=== PATIENT | male | born 1955 | race Caucasian/White ===

== ENCOUNTER 2017-07-13 22:45 | Inpatient (IN) | payer OTHER ==
[~2017-07-13] VITALS: Ht 180.3 cm; Wt 115.0 kg
[2017-07-13 22:48] VITALS: BP 161/107; PULSE 105; RESP 16; TEMP 98.7; O2SAT 94
[2017-07-13] MEDS ORDERED: SODIUM CHLORIDE 0.9% FLUSH 10 ML FLUSH IV FLUSH PRN (23:45)
[2017-07-13] MEDS ORDERED: ONDANSETRON HCL 4 MG/2 ML VIAL IVP ONE (23:45)
[2017-07-13] MEDS ORDERED: MORPHINE SULFATE 4 MG/ML INJ IV PUSH ONE (23:45)
--- NOTE | 2017-07-13 23:49 | PD ---
HPI Chief Complaint: Abdominal Pain Time Seen by Provider: 23:38 Travel History International Travel<30 days: No Contact w/Intl Traveler<30days: No Traveled to known affect area: No History of Present Illness HPI SINCE WEDNESDAY INTERMITTENT ABD PAIN, ON LOWER ABDOMEN, 04/15, NONRAD, DENIES NV/ D/FEVER/CP AT THIS TIME. PATIENT STATES NO AGGRAVATING FACTORS BUT PAIN SEEMED TO IMPROVE WITH VOMITING. PCP: VISITING FROM [place] PMHS: HTN, HYPERCHOL PSHX DENIES PFSH Past Medical History High Cholesterol: Yes Diminished Hearing: No Hypertension: Yes Tetanus Vaccination: < 5 Years Influenza Vaccination: Yes Past Surgical History Surgical History: No Previous Surgery Social History Alcohol Use: Yes (SOCIALLY) Tobacco Use: No Substance Use: No Allergies-Medications (Allergen,Severity, Reaction): Coded Allergies: No Known Allergies (Unverified , 07/13/17) Reported Meds & Prescriptions Reported Meds & Active Scripts Active Reported Simvastatin 20 Mg Tab 20 Mg PO HS Lisinopril 20 Mg Tab 20 Mg PO HS Fish Oil + D3 (Fish Oil-Cholecalciferol) 1,200-1,000 Mg-Unit Cap 1 Cap PO BID Fexofenadine (Fexofenadine HCl) 180 Mg Tab 180 Mg PO BID Escitalopram (Escitalopram Oxalate) 10 Mg Tab 20 Mg PO DAILY Complete Multi 50+ Tablet (Multivit-Min/FA/Lycopen/Lutein) 500 Mcg-300 Mcg-250 Mcg Tablet 1 Tab PO DAILY Aspirin 81 Mg Chew 81 Mg CHEW HS Amlodipine (Amlodipine Besylate) 5 Mg Tab 5 Mg PO DAILY Review of Systems General / Constitutional: No: Fever Eyes: No: Visual changes HENT: No: Headaches Cardiovascular: No: Chest Pain or Discomfort Respiratory: No: Shortness of Breath Gastrointestinal: Positive: Vomiting, Abdominal Pain Genitourinary: No: Dysuria Musculoskeletal: No: Pain Skin: No Rash Neurologic: No: Weakness Psychiatric: No: Depression Endocrine: No: Polydipsia Hematologic/Lymphatic: No: Easy Bruising Physical Exam Narrative GENERAL: SKIN: Warm and dry. HEAD: Atraumatic. Normocephalic. EYES: Pupils equal and round. No scleral icterus. No injection or drainage. ENT: No nasal bleeding or discharge. Mucous membranes pink and moist. NECK: Trachea midline. No JVD. CARDIOVASCULAR: Regular rate and rhythm. RESPIRATORY: No accessory muscle use. Clear to auscultation. Breath sounds equal bilaterally. GASTROINTESTINAL: Abdomen soft, MILD SUPRAPUBIC TTPERCUSSION , nondistended. DECREASED BOWEL SOUNDS MUSCULOSKELETAL: Extremities without clubbing, cyanosis, or edema. No obvious deformities. NEUROLOGICAL: Awake and alert. No obvious cranial nerve deficits. Motor grossly within normal limits. Five out of 5 muscle strength in the arms and legs. Normal speech. PSYCHIATRIC: Appropriate mood and affect; insight and judgment normal. Data Data Last Documented VS Orders Orders Complete Blood Count With Diff (07/13/17 23:44) Comprehensive Metabolic Panel (07/13/17 23:44) Lipase (07/13/17 23:44) Urinalysis - C+S If Indicated (07/13/17 23:44) Ct Abd/Pel W/O Iv Contrast (07/13/17 23:44) Iv Access Insert/Monitor (07/13/17 23:44) Ecg Monitoring (07/13/17 23:44) Oximetry (07/13/17 23:44) Morphine Inj (Morphine Inj) (07/13/17 23:45) Ondansetron Inj (Zofran Inj) (07/13/17 23:45) Electrocardiogram (07/13/17 23:44) Admit To Inpatient (07/14/17 ) Vital Signs (Adult) Q4H (07/14/17 02:18) Activity Oob With Assistance (07/14/17 02:18) Stippler / Telemetry .CONTINUOUS (07/14/17 02:18) Diet Npo (07/14/17 Breakfast) Sodium Chlor 0.9% 1000 Ml Inj (Ns 1000 M (07/14/17 02:18) Sodium Chloride 0.9% Flush (Ns Flush) (07/14/17 02:30) Sodium Chloride 0.9% Flush (Ns Flush) (07/14/17 09:00) Ondansetron Inj (Zofran Inj) (07/14/17 02:30) Complete Blood Count With Diff (07/15/17 06:00) Naloxone Inj (Narcan Inj) (07/14/17 02:30) Inpatient Certification (07/14/17 ) Consult General Surgery (07/14/17 ) Labs Laboratory Tests Test 07/13/17 23:55 07/14/17 00:30 White Blood Count 5.3 TH/MM3 Red Blood Count 4.62 MIL/MM3 Hemoglobin 14.7 GM/DL Hematocrit 43.4 % Mean Corpuscular Volume 93.9 FL Mean Corpuscular Hemoglobin 31.8 PG Mean Corpuscular Hemoglobin Concent 33.9 % Red Cell Distribution Width 13.1 % Platelet Count 288 TH/MM3 Mean Platelet Volume 7.3 FL Neutrophils (%) (Auto) 66.8 % Lymphocytes (%) (Auto) 15.5 % Monocytes (%) (Auto) 15.9 % Eosinophils (%) (Auto) 1.5 % Basophils (%) (Auto) 0.3 % Neutrophils # (Auto) 3.5 TH/MM3 Lymphocytes # (Auto) 0.8 TH/MM3 Monocytes # (Auto) 0.8 TH/MM3 Eosinophils # (Auto) 0.1 TH/MM3 Basophils # (Auto) 0.0 TH/MM3 CBC Comment AUTO DIFF Differential Total Cells Counted 100 Neutrophils % (Manual) 28 % Band Neutrophils % 37 % Lymphocytes % 18 % Monocytes % 13 % Neutrophils # (Manual) 3.7 TH/MM3 Metamyelocytes 4 % Differential Comment FINAL DIFF MANUAL Atypical Lymphocytes % Toxic Vacuolation PRESENT Dohle Bodies PRESENT Platelet Estimate NORMAL Platelet Morphology Comment NORMAL Red Cell Morphology Comment NORMAL Blood Urea Nitrogen 38 MG/DL Creatinine 1.34 MG/DL Random Glucose 125 MG/DL Total Protein 7.9 GM/DL Albumin 3.5 GM/DL Calcium Level 8.8 MG/DL Alkaline Phosphatase 69 U/L Aspartate Amino Transf (AST/SGOT) 26 U/L Alanine Aminotransferase (ALT/SGPT) 34 U/L Total Bilirubin 0.5 MG/DL Sodium Level 138 MEQ/L Potassium Level 3.3 MEQ/L Chloride Level 99 MEQ/L Carbon Dioxide Level 29.2 MEQ/L Anion Gap 10 MEQ/L Estimat Glomerular Filtration Rate 54 ML/MIN Lipase 91 U/L Urine Color YELLOW Urine Turbidity CLEAR Urine pH 6.0 Urine Specific [place] 1.032 Urine Protein 100 mg/dL Urine Glucose (UA) NEG mg/dL Urine Ketones TRACE mg/dL Urine Occult Blood NEG Urine Nitrite NEG Urine Bilirubin NEG Urine Urobilinogen 2.0 MG/DL Urine Leukocyte Esterase NEG Urine RBC 1 /hpf Urine WBC LESS THAN 1 /hpf Urine Renal Epithelial Cells <1 /hpf Urine Mucus FEW /lpf Microscopic Urinalysis Comment CULT NOT INDICATED MDM Medical Decision Making Medical Screen Exam Complete: Yes Emergency Medical Condition: Yes Medical Record Reviewed: Yes Differential Diagnosis PANCREATITIS V APPY V GB V BILIARY COLIC V STEMI Narrative Course no e/o stemi, on ct no e/o appy/biliary colic however sbo noted...pt will be admitted for observation Diagnosis Primary Impression: SBO Admitting Information Admitting Physician Requests: Observation Dharmesh Chandler MD Jul 13, 2017 23:49
[2017-07-13 23:55] VITALS: PULSE 94; RESP 16; O2SAT 96
[2017-07-14] VITALS (8 sets, daily range): BP systolic 141–163; BP diastolic 79–99; PULSE 64–94; RESP 16–22; TEMP 96–98.8; O2SAT 94–96
[2017-07-14 00:23] LABS: AUTOMATED NEUTROPHIL # 3.5 TH/MM3 (1.8-7.7); BASOPHIL % 0.3 % (0.0-2.0); EOSINOPHIL # 0.1 TH/MM3 (0-0.4); EOSINOPHIL % 1.5 % (0.0-4.0); HEMATOCRIT 43.4 % (39.0-51.0); LYMPH % 15.5 % (9.0-44.0); LYMPHOCYTE # 0.8 TH/MM3 (1.0-4.8); MEAN CELL VOLUME 93.9 FL (80.0-100.0); MEAN CORPUSCULAR HEMOGLOBIN 31.8 PG (27.0-34.0); MEAN CORPUSCULAR HGB CONC 33.9 % (32.0-36.0); MONO % 15.9 % (0.0-8.0); NEUT % 66.8 % (16.0-70.0); PLATELET COUNT 288 TH/MM3 (150-450); RED BLOOD COUNT 4.62 MIL/MM3 (4.50-5.90); RED CELL DISTRIBUTION WIDTH 13.1 % (11.6-17.2); WHITE BLOOD COUNT 5.3 TH/MM3 (4.0-11.0)
[2017-07-14 00:24] LABS: HEMO FLAGS AUTO DIFF
[2017-07-14 00:46] LABS: BLOOD, URINE NEG (NEG); GLUCOSE,URINE NEG (NEG); KETONE, URINE TRACE mg/dL (NEG); MUCUS URINE FEW /lpf (OCC); NITRITE,URINE NEG (NEG); RENAL EPITHELIAL CELLS <1 /hpf; URINE COLOR YELLOW (YELLW/STRAW)
[2017-07-14 00:47] LABS: COMMENT (UR) CULT NOT INDICATED; CULTURE IF INDICATED CULT NOT INDICATED
[2017-07-14 00:48] LABS: ALT (GPT) 34 U/L (12-78); ANION GAP 10 MEQ/L (5-15); AST (GOT) 26 U/L (15-37); BICARBONATE 29.2 MEQ/L (21.0-32.0); BLOOD UREA NITROGEN 38 MG/DL (7-18); CHLORIDE 99 MEQ/L (98-107); GLOMERULAR FILTRATION RATE 54 ML/MIN (>89); POTASSIUM 3.3 MEQ/L (3.5-5.1); SODIUM (NA) 138 MEQ/L (136-145)
[2017-07-14 00:51] LABS: ALKALINE PHOSPHATASE 69 U/L (45-117); TOTAL BILIRUBIN ADULT 0.5 MG/DL (0.2-1.0)
[2017-07-14 00:59] LABS: BANDS 37 % (0-6); METAMYELOCYTES 4 % (0-1); NEUTROPHIL # MANUAL DIFF 3.7 TH/MM3 (1.8-7.7); POLYS (SEG NEUTROPHILS) 28 % (16-70); WBC DIFF SAMPLE 100
[2017-07-14 01:00] LABS: DOHLE BODIES PRESENT (NONE SEEN); PLATELET ESTIMATE SMEAR NORMAL (NORMAL); PLATELET MORPHOLOGY NORMAL (NORMAL); SCAN/DIFF FINAL DIFF MANUAL
[2017-07-14 01:02] LABS: TOXIC VACUOLATION PRESENT (NONE SEEN)
--- NOTE | 2017-07-14 01:12 | RADRPT ---
EXAM DATE/TIME: 07/14/2017 00:30 [facility] COMPARISON: No previous studies available for comparison. INDICATIONS : Mid-abdominal pain with vomiting. Evaluate for calculi. ORAL CONTRAST: No oral contrast ingested. RADIATION DOSE: 28.42 CTDIvol (mGy) MEDICAL HISTORY : Hypertension. SURGICAL HISTORY : None. ENCOUNTER: Initial ACUITY: 1 day PAIN SCALE: 7/10 LOCATION: Abdomen. TECHNIQUE: Volumetric scanning of the abdomen and pelvis was performed. Using automated exposure control and ad justment of the mA and/or kV according to patient size, radiation dose was kept as low as reasonably achievable to obtain optimal diagnostic quality images. DICOM format image data is available electro nically for review and comparison. FINDINGS: Examination of the lung bases demonstrates no abnormality. No pleural fluid is identified. No pulmona ry nodules are present. The liver and spleen are normal in size and no focal defects are identified. The gallbladder and pancreas are unremarkable. No intrahepatic or extrahepatic ductal dilatation is s een. The adrenal glands are unremarkable. The right kidney is unremarkable. There is a 5 mm hyperdens ity in the left kidney likely reflecting a hyperdense cyst. No abnormally enlarged lymph nodes are id entified. There is a 2 cm ossific density involving the distal ileum at the site of a transition zone characteristic of mechanical obstruction. No free air is identified. Examination of the pelvis demonstrates no evidence of free fluid or pelvic mass. No abnormally enlarg ed inguinal or retroperitoneal lymph nodes are present. The bladder is unremarkable. There is diverti culosis without evidence of diverticulitis. 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 Titi Blunt MD on July 14, 2017 at 1: 00 Board Certified Radiologist. This report was verified electronically.
[2017-07-14] MEDS ORDERED: ONDANSETRON HCL 4 MG/2 ML VIAL IVP PRN (02:30)
[2017-07-14] MEDS ORDERED: NALOXONE HCL 0.4 MG/ML AMP IV PUSH PRN ×2 (02:30→08:30)
[2017-07-14] MEDS ORDERED: SODIUM CHLORIDE 0.9% FLUSH 10 ML FLUSH IV FLUSH PRN ×2 (02:30→08:30)
[2017-07-14] MEDS: SODIUM CHLOR 0.9% 1000 ML INJ 1,000 ML IV SCH ×3 (03:01→10:17)
[2017-07-14] MEDS: POTASSIUM CHLOR 20 MEQ PREMIX 100 ML IV SCH ×2 (03:02→05:17)
[2017-07-14] MEDS ORDERED: ASPI-516 CHEW (07:24)
[2017-07-14] MEDS ORDERED: TH CTAB3 PO (07:24)
[2017-07-14] MEDS ORDERED: FEXO180T PO (07:24)
[2017-07-14] MEDS ORDERED: SIMV20TA PO (07:24)
[2017-07-14] MEDS ORDERED: FISHCAP4 PO (07:24)
[2017-07-14] MEDS ORDERED: LISI-515 PO (07:24)
[2017-07-14] MEDS ORDERED: AMLO5TAB2 PO (07:24)
[2017-07-14] MEDS ORDERED: ESCI10TA PO (07:24)
[2017-07-14] MEDS ORDERED: oxyCODONE/ACETAMINOPHEN 10 MG/325 MG TAB PO PRN (08:30)
[2017-07-14] MEDS ORDERED: LACTULOSE SYRUP 20 GM/30 ML CUP PO PRN (08:30)
[2017-07-14] MEDS ORDERED: MAGNESIUM HYDROXIDE SUSP 30 ML CUP PO PRN (08:30)
[2017-07-14] MEDS ORDERED: oxyCODONE/ACETAMINOPHEN 5 MG/325 MG TAB PO PRN (08:30)
[2017-07-14] MEDS ORDERED: MORPHINE SULFATE 4 MG/ML INJ IV PUSH PRN ×2 (08:30)
[2017-07-14] MEDS ORDERED: BISACODYL 10 MG SUPP RECTAL PRN (08:30)
[2017-07-14] MEDS ORDERED: ACETAMINOPHEN 325 MG TAB PO PRN ×2 (08:30)
[2017-07-14] MEDS ORDERED: SENNOSIDES 8.6 MG TAB PO PRN (08:30)
[2017-07-14] MEDS ORDERED: PROCHLORPERAZINE 25 MG SUPP RECTAL PRN (08:30)
--- NOTE | 2017-07-14 08:43 | RADRPT ---
EXAM DATE/TIME: 07/14/2017 08:16 [facility] COMPARISON: CT ABDOMEN & PELVIS W/O CONTRAST, July 14, 2017, 0:30. INDICATIONS : Abdominal pain & distention. MEDICAL HISTORY : Hypercholesterolemia. Hypertension SURGICAL HISTORY : None. ENCOUNTER: Subsequent ACUITY: 4 - 6 days PAIN SCORE: 6/10 LOCATION: lower/mid abdomen FINDINGS: Supine and upright views of the abdomen demonstrate abnormally dilated small bowel with air-fluid lev els. The small bowel measures up to 5 cm. Nasogastric tube is looped in the stomach. There is an ovoi d calcified structure in the right lower quadrant measuring 3.0 x 1.6 cm. There is no pneumobilia gautam reciated. Bones demonstrate mild degenerative change but no acute finding. Lung bases are clear. No f ree air is visualized. CONCLUSION: 1. Abnormally dilated small bowel with air-fluid levels characteristic of a small bowel obstruction. 2. The level of obstruction is in the right lower quadrant where there is a 3 cm calcified lesion wit hin the small bowel based on earlier CT. No pneumobilia is visualized to definitively diagnose gallst one ileus but that is a top consideration. Less likely a calcified small bowel mass or ingested forei gn body could be the cause for the calcified lesion in the distal ileum. Zachary Villalpando MD on July 14, 2017 at 8:39 Board Certified Radiologist. This report was verified electronically.
[2017-07-14] MEDS ORDERED: SODIUM CHLORIDE 0.9% FLUSH 10 ML FLUSH IV FLUSH SCH ×2 (09:00)
[2017-07-14] MEDS: DOCUSATE SODIUM 50 MG/SENNA 8.6 MG TAB PO SCH ×2 (09:00→20:27)
--- NOTE | 2017-07-14 09:37 | EKG ---
Date Performed: 07/14/2017 Time Performed: 00:09:54 PTAGE: 62 years EKG: Sinus rhythm NONSPECIFIC ST & T-WAVE ABNORMALITY BORDERLINE ECG NO PREVIOUS TRACING DOCTOR: Chato Whittington Interpretating Date/Time 07/14/2017 09:33:40
--- NOTE | 2017-07-14 11:10 | HHI.HP ---
[facility] Primary Care Physician No Primary Care Physician Admission Diagnosis SBO Diagnoses: (1) SBO (small bowel obstruction) Diagnosis: Principal (2) Abdominal pain Diagnosis: Principal (3) Hypertension (4) Hyperlipidemia Diagnosis: Secondary (5) Hypokalemia Diagnosis: Secondary Chief Complaint: ABDOMINAL PAIN Travel History International Travel<30 Days: No Contact w/Intl Traveler <30 Da: No Traveled to Known Affected Are: No History of Present Illness Patient is a 62-year-old male. He was having abdominal pain since Wednesday. The pain has been intermittent abdominal pain on the lower abdomen as 8 out of 10 that is been nonradiating. Patient denies any nausea vomiting or diarrhea or fevers or chest pain. States his pain improved with vomiting His primary care physician is in [place] is visiting Has been seen by surgery and is scheduled to go for a laparoscopic procedure today of his abdomen Review of Systems Constitutional: DENIES: Diaphoretic episodes, Fatigue, Fever, Weight gain, Weight loss, Chills Endocrine: DENIES: Heat/cold intolerance, Polydipsia, Polyuria, Polyphagia Eyes: DENIES: Blurred vision, Diplopia, Eye inflammation Ears, nose, mouth, throat: DENIES: Tinnitus, Hearing loss, Vertigo, Nasal discharge Respiratory: DENIES: Apneas, Cough, Snoring, Wheezing, Hemoptysis Cardiovascular: DENIES: Chest pain, Palpitations, Syncope, Dyspnea on Exertion Gastrointestinal: COMPLAINS OF: Abdominal pain, Nausea, Vomiting, DENIES: Black stools, Bloody stools, Constipation, Diarrhea Musculoskeletal: DENIES: Joint pain, Muscle aches, Stiffness Integumentary: DENIES: Abnormal pigmentation, Nail changes Hematologic/lymphatic: DENIES: Bruising, Lymphadenopathy Immunologic/allergic: DENIES: Eczema, Urticaria Neurologic: DENIES: Abnormal gait, Headache, Localized weakness, Paresthesias Psychiatric: DENIES: Anxiety, Confusion, Mood changes, Depression, Hallucinations Except as stated in HPI: all other systems reviewed are Neg Past Family Social History Past Medical History Hypertension Hyperlipidemia Depression anxiety Seasonal allergies Past Surgical History dENIES Reported Medications Reported Meds & Active Scripts Active Reported Simvastatin 20 Mg Tab 20 Mg PO HS Lisinopril 20 Mg Tab 20 Mg PO HS Fish Oil + D3 (Fish Oil-Cholecalciferol) 1,200-1,000 Mg-Unit Cap 1 Cap PO BID Fexofenadine (Fexofenadine HCl) 180 Mg Tab 180 Mg PO BID Escitalopram (Escitalopram Oxalate) 10 Mg Tab 20 Mg PO DAILY Complete Multi 50+ Tablet (Multivit-Min/FA/Lycopen/Lutein) 500 Mcg-300 Mcg-250 Mcg Tablet 1 Tab PO DAILY Aspirin 81 Mg Chew 81 Mg CHEW HS Amlodipine (Amlodipine Besylate) 5 Mg Tab 5 Mg PO DAILY Allergies: Coded Allergies: No Known Allergies (Unverified , 07/13/17) Active Ordered Medications Current Medications Morphine Sulfate (Morphine Inj) 4 mg ONCE ONCE IV PUSH Last administered on 00:00; Start 07/13/17 at 23:45; Stop 07/13/17 at 23:46; Status DC Ondansetron HCl (Zofran Inj) 4 mg ONCE ONCE IVP Last administered on 23:59; Start 07/13/17 at 23:45; Stop 07/13/17 at 23:46; Status DC Sodium Chloride (NS Flush) 2 ml UNSCH PRN IV FLUSH FLUSH AFTER USING IV ACCESS ; Start 07/13/17 at 23:45; Status Cancel Sodium Chloride 1,000 ml @ 100 mls/hr Q10H IV Last administered on 07/14/17 05:16; Start 07/14/17 at 02:18 Sodium Chloride (NS Flush) 2 ml UNSCH PRN IV FLUSH FLUSH AFTER USING IV ACCESS ; Start 07/14/17 at 02:30 Sodium Chloride (NS Flush) 2 ml BID IV FLUSH ; Start 07/14/17 at 09:00 Ondansetron HCl (Zofran Inj) 4 mg Q6H PRN IVP NAUSEA OR VOMITING; Start at 02:30; Stop 07/14/17 at 08:55; Status DC Naloxone HCl (Narcan Inj) 0.4 mg UNSCH PRN IV PUSH SEE LABEL COMMENTS; Start 07/14/17 at 02:30; Stop 07/14/17 at 08:55; Status DC Potassium Chloride 100 ml @ 50 mls/hr Q2H IV Last administered on 07/14/17t 05 :17; Start 07/14/17 at 02:30; Stop 07/14/17 at 06:29; Status DC Sodium Chloride (NS Flush) 2 ml UNSCH PRN IV FLUSH FLUSH AFTER USING IV ACCESS ; Start 07/14/17 at 08:30; Stop 07/14/17 at 08:55; Status DC Sodium Chloride (NS Flush) 2 ml BID IV FLUSH ; Start 07/14/17 at 09:00; Stop at 09:00; Status DC Acetaminophen (Tylenol) 650 mg Q4H PRN PO TEMP > 100.4; Start 07/14/17 at 08:30 Ondansetron HCl (Zofran Inj) 4 mg Q6H PRN IVP NAUSEA OR VOMITING; Start at 08:30 Prochlorperazine (Compazine Supp) 25 mg Q12H PRN RECTAL NAUSEA OR VOMITING; Start 07/14/17 at 08:30 Acetaminophen (Tylenol) 650 mg Q6H PRN PO PAIN SCALE 1 TO 2; Start 07/14/17 at 08:30 Oxycodone/ Acetaminophen (Percocet 5-325 Mg) 1 tab Q6H PRN PO PAIN SCALE 3 TO 5; Start 07/14/17 at 08:30 Oxycodone/ Acetaminophen (Percocet 10-325 Mg) 1 tab Q6H PRN PO PAIN SCALE 6 TO 10; Start 07/14/17 at 08:30 Morphine Sulfate (Morphine Inj) 2 mg Q3H PRN IV PUSH Pain 3-5; if unable to take PO; Start 07/14/17 at 08:30 Morphine Sulfate (Morphine Inj) 4 mg Q3H PRN IV PUSH Pain 6-10;if unable to take PO; Start 07/14/17 at 08:30 Naloxone HCl (Narcan Inj) 0.4 mg UNSCH PRN IV PUSH SEE LABEL COMMENTS; Start 07/14/17 at 08:30 Senna/Docusate Sodium (Berna-Colace) 1 tab BID PO ; Start 07/14/17 at 09:00 Magnesium Hydroxide (Milk Of Magnesia Liq) 30 ml Q12H PRN PO Mild constipation ; Start 07/14/17 at 08:30 Sennosides (Senokot) 17.2 mg Q12H PRN PO Moderate constipation; Start 07/14/17 at 08:30 Bisacodyl (Dulcolax Supp) 10 mg DAILY PRN RECTAL SEVERE CONSITIPATION; Start 07/14/17 at 08:30 Lactulose (Lactulose Liq) 30 ml DAILY PRN PO SEVERE CONSITIPATION; Start at 08:30 Family History Hypertension Social History Occasional alcoholic beverage denies any tobacco or illicits Visiting us from [place] Physical Exam Vital Signs Vital Signs Date Time Temp Pulse Resp B/P (MAP) Pulse Ox O2 Delivery O2 Flow Rate FiO2 07/14/17 08:00 97.8 91 17 163/99 (120) 94 07/14/17 03:35 98.8 64 22 95 07/14/17 03:24 07/14/17 03:23 94 16 163/79 (107) 95 Room Air 07/13/17 23:55 94 16 96 Nasal Cannula 2.00 07/13/17 23:14 16 07/13/17 22:48 98.7 105 16 161/107 (125) 94 Physical Exam GENERAL: This is a well-nourished, well-developed patient, in mild distress. SKIN: No rashes, ecchymoses or lesions. Cool and dry. HEAD: Atraumatic. Normocephalic. No temporal or scalp tenderness. EYES: Pupils equal round and reactive. Extraocular motions intact. No scleral icterus. No injection or drainage. ENT: Nose without bleeding, purulent drainage or septal hematoma. Throat without erythema, tonsillar hypertrophy or exudate. Uvula midline. Airway patent. Has NG tube to low intermittent suction tongue is midline NECK: Trachea midline. No JVD or lymphadenopathy. Supple, nontender, no meningeal signs. CARDIOVASCULAR: Regular rate and rhythm without murmurs, gallops, or rubs. S1 and S2 no S3-S4 RESPIRATORY: Clear to auscultation. Breath sounds equal bilaterally. No wheezes , rales, or rhonchi. GASTROINTESTINAL: Abdomen soft, non-tender,. No hepato-splenomegaly, or palpable masses. No guarding. Some distention MUSCULOSKELETAL: Extremities without clubbing, cyanosis, or edema. No joint tenderness, effusion, or edema noted. No calf tenderness. Negative Homans sign bilaterally. NEUROLOGICAL: Awake and alert. Cranial nerves II through XII intact. Motor and sensory grossly within normal limits. Five out of 5 muscle strength in all muscle groups. Normal speech. Insight and judgment is good mood and behaviors appropriate Laboratory Laboratory Tests Test 07/13/17 23:55 07/14/17 00:30 White Blood Count 5.3 Red Blood Count 4.62 Hemoglobin 14.7 Hematocrit 43.4 Mean Corpuscular Volume 93.9 Mean Corpuscular Hemoglobin 31.8 Mean Corpuscular Hemoglobin Concent 33.9 Red Cell Distribution Width 13.1 Platelet Count 288 Mean Platelet Volume 7.3 Neutrophils (%) (Auto) 66.8 Lymphocytes (%) (Auto) 15.5 Monocytes (%) (Auto) 15.9 Eosinophils (%) (Auto) 1.5 Basophils (%) (Auto) 0.3 Neutrophils # (Auto) 3.5 Lymphocytes # (Auto) 0.8 Monocytes # (Auto) 0.8 Eosinophils # (Auto) 0.1 Basophils # (Auto) 0.0 CBC Comment AUTO DIFF Differential Total Cells Counted 100 Neutrophils % (Manual) 28 Band Neutrophils % 37 Lymphocytes % 18 Monocytes % 13 Neutrophils # (Manual) 3.7 Metamyelocytes 4 Differential Comment FINAL DIFF MANUAL Atypical Lymphocytes Toxic Vacuolation PRESENT Dohle Bodies PRESENT Platelet Estimate NORMAL Platelet Morphology Comment NORMAL Red Cell Morphology Comment NORMAL Blood Urea Nitrogen 38 Creatinine 1.34 Random Glucose 125 Total Protein 7.9 Albumin 3.5 Calcium Level 8.8 Alkaline Phosphatase 69 Aspartate Amino Transf (AST/SGOT) 26 Alanine Aminotransferase (ALT/SGPT) 34 Total Bilirubin 0.5 Sodium Level 138 Potassium Level 3.3 Chloride Level 99 Carbon Dioxide Level 29.2 Anion Gap 10 Estimat Glomerular Filtration Rate 54 Lipase 91 Urine Color YELLOW Urine Turbidity CLEAR Urine pH 6.0 Urine Specific [place] 1.032 Urine Protein 100 Urine Glucose (UA) NEG Urine Ketones TRACE Urine Occult Blood NEG Urine Nitrite NEG Urine Bilirubin NEG Urine Urobilinogen 2.0 Urine Leukocyte Esterase NEG Urine RBC 1 Urine WBC LESS THAN 1 Urine Renal Epithelial Cells <1 Urine Mucus FEW Microscopic Urinalysis Comment CULT NOT INDICATED Result Diagram: 07/13/17 2355 07/13/17 2355 Imaging Last Impressions Abdomen X-Ray 07/14/17 0000 Signed Impressions: Service Date/Time: Friday, July 14, 2017 08:16 - CONCLUSION: 1. Abnormally dilated small bowel with air-fluid levels characteristic of a small bowel obstruction. 2. The level of obstruction is in the right lower quadrant where there is a 3 cm calcified lesion within the small bowel based on earlier CT. No pneumobilia is visualized to definitively diagnose gallstone ileus but that is a top consideration. Less likely a calcified small bowel mass or ingested foreign body could be the cause for the calcified lesion in the distal ileum. Zachary Villalpando MD Abdomen/Pelvis CT 07/13/17 3115 Signed Impressions: Service Date/Time: Friday, July 14, 2017 00:30 - CONCLUSION: 2 cm ossific density involving the terminal ileum with proximal dilatation characteristic of mechanical obstruction. MD Colton Bertrand VTE Risk Assessment Caprinnathanael VTE Risk Assessment: Mod/High Risk (score >= 2) Caprini Risk Assessment Model Point Value = 1 Point Value = 2 Point Value = 3 Point Value = 5 Age 41-60 Minor surgery BMI > 25 kg/m2 Swollen legs Varicose veins or History of unexplained or recurrent spontaneous Oral contraceptives or hormone replacement Sepsis (< 1 month) Serious lung disease, including pneumonia (< 1 month) Abnormal pulmonary function Acute myocardial infarction Congestive heart failure (< 1 month) History of inflammatory bowel disease Medical patient at bed rest Age 61-74 Arthroscopic surgery Major open surgery (> 45 min) Laparoscopic surgery (> 45 min) Malignancy Confined to bed (> 72 hours) Immobilizing plaster cast Central venous access Age >= 75 History of VTE Family history of VTE Factor V Leiden Prothrombin [id number] Lupus anticoagulant Anticardiolipin antibodies Elevated serum homocysteine Heparin-induced thrombocytopenia Other congenital or acquired thrombophilia Stroke (< 1 month) Elective arthroplasty Hip, pelvis, or leg fracture Acute spinal cord injury (< 1 month) Prophylaxis Regimen Total Risk Factor Score Risk Level Prophylaxis Regimen 0-1 Low Early ambulation 2 Moderate Order ONE of the following: *Sequential Compression Device (SCD) *Heparin 5000 units SQ BID 3-4 Higher Order ONE of the following medications: *Heparin 5000 units SQ TID *Enoxaparin/Lovenox 40 mg SQ daily (WT < 150 kg, CrCl > 30 mL/min) *Enoxaparin/Lovenox 30 mg SQ daily (WT < 150 kg, CrCl > 10-29 mL/min) *Enoxaparin/Lovenox 30 mg SQ BID (WT < 150 kg, CrCl > 30 mL/min) AND/OR *Sequential Compression Device (SCD) 5 or more Highest Order ONE of the following medications: *Heparin 5000 units SQ TID (Preferred with Epidurals) *Enoxaparin/Lovenox 40 mg SQ daily (WT < 150 kg, CrCl > 30 mL/min) *Enoxaparin/Lovenox 30 mg SQ daily (WT < 150 kg, CrCl > 10-29 mL/min) *Enoxaparin/Lovenox 30 mg SQ BID (WT < 150 kg, CrCl > 30 mL/min) AND *Sequential Compression Device (SCD) Assessment and Plan Problem List: (1) Depression ICD Code: F32.9 - Major depressive disorder, single episode, unspecified (2) Hypokalemia ICD Code: E87.6 - Hypokalemia (3) Hyperlipidemia ICD Code: E78.5 - Hyperlipidemia, unspecified (4) SBO (small bowel obstruction) ICD Code: K56.609 - Unspecified intestinal obstruction, unspecified as to partial versus complete obstruction (5) Abdominal pain ICD Code: R10.9 - Unspecified abdominal pain (6) Hypertension ICD Code: I10 - Essential (primary) hypertension Assessment and Plan Abdominal pain with small bowel obstruction per CAT scan Is scheduled to undergo diagnostic laparoscopy by Dr. Calros Eduardo Laura of surgery today for suspected obstructing gallstone in the small bowel Hypertension we'll restart meds once able to take oral medications Anxiety/DEPRESSION we'll restart medications once able to take oral medications Hyperlipidemia we'll restart medications once able to take by mouth medications Pain control and antibiotics as needed Continue on IV fluids Code Status Full code Discussed Condition With Patient and RN Physician Certification 2 Midnight Certification Type: Admission for Inpatient Services Order for Inpatient Services The services are ordered in accordance with Medicare regulations or non- Medicare payer requirements, as applicable. In the case of services not specified as inpatient-only, they are appropriately provided as inpatient services in accordance with the 2-midnight benchmark. Estimated LOS (days): 3 3 days is the estimated time the patient will need to remain in the hospital, assuming treatment plan goals are met and no additional complications. Post-Hospital Plan: Not yet determined Alhaji Riley DO Jul 14, 2017 11:10
[2017-07-14] MEDS ORDERED: PROPOFOL 200 MG/20 ML AMP IV ONE (12:00)
[2017-07-14] MEDS ORDERED: LIDOCAINE HCL 1% PF 5 ML AMPULE OTHER ONE (12:00)
[2017-07-14] MEDS ORDERED: ROCURONIUM INJ 50 MG/5 ML SYRINGE IV PUSH ONE (12:00)
[2017-07-14] MEDS ORDERED: SUCCINYLCHOLINE CHLORIDE 100 MG/5 ML SYRINGE IV PUSH ONE (12:00)
[2017-07-14] MEDS ORDERED: MIDAZOLAM HCL 2 MG/2 ML VIAL IV ONE (12:00)
[2017-07-14] MEDS ORDERED: LACTATED RINGER'S 1000 ML INJ 3,000 ML IV ONE (12:00)
--- NOTE | 2017-07-14 12:18 | HHI.HP ---
cc: Zane Wood MD HPI Service General Surgery Primary Care Physician No Primary Care Physician Admission Diagnosis SBO Chief Complaint: Abdominal pain; nausea; vomiting History of Present Illness This is a 62-year-old male with a past medical history of hypertension and high cholesterol. The patient is visiting from [place]. The patient has had abdominal pain that began on Wednesday with intermittent nausea and vomiting. He has had several episodes of emesis. A CT abdomen and pelvis was obtained which shows a 2 cm ossific density suspicious for gallstone ileus. An NG tube was inserted and maintains to low intermittent wall suction. A General Surgery consultation has been requested for evaluation of possible operative intervention for gallstone ileus. Review of Systems Constitutional: COMPLAINS OF: Change in appetite, DENIES: Fatigue Endocrine: DENIES: Polydipsia, Polyuria, Polyphagia Eyes: DENIES: Diplopia Ears, nose, mouth, throat: DENIES: Hearing loss Respiratory: DENIES: Cough Cardiovascular: DENIES: Chest pain Gastrointestinal: COMPLAINS OF: Abdominal pain, Nausea, Vomiting Genitourinary: DENIES: Urinary frequency Musculoskeletal: DENIES: Joint pain Integumentary: DENIES: Abnormal pigmentation Hematologic/lymphatic: DENIES: Bruising Immunologic/allergic: DENIES: Eczema Neurologic: DENIES: Headache, Localized weakness Psychiatric: DENIES: Mood changes, Depression, Hallucinations Past Family Social History Past Medical History Hypertension Hypercholesterolemia Past Surgical History None Reported Medications Fexofenadine Simvastatin Patient will Amlodipine Lisinopril Aspirin Escitalopram Multivitamin Allergies: Coded Allergies: No Known Allergies (Unverified , 07/13/17) Active Ordered Medications Current Medications Medications (Trade) Dose Ordered Sig/Elliott Route Start Time Stop Time Status Last Admin Sodium Chloride 1,000 ml @ 200 mls/hr Q5H IV 07/14/17 02:18 07/14/17 05:16 (NS Flush) 2 ml UNSCH PRN IV FLUSH 07/14/17 02:30 (NS Flush) 2 ml BID IV FLUSH 07/14/17 09:00 (Tylenol) 650 mg Q4H PRN PO 07/14/17 08:30 (Zofran Inj) 4 mg Q6H PRN IVP 07/14/17 08:30 (Compazine Supp) 25 mg Q12H PRN RECTAL 07/14/17 08:30 (Tylenol) 650 mg Q6H PRN PO 07/14/17 08:30 (Percocet 5-325 Mg) 1 tab Q6H PRN PO 07/14/17 08:30 (Percocet 10-325 Mg) 1 tab Q6H PRN PO 07/14/17 08:30 (Morphine Inj) 2 mg Q3H PRN IV PUSH 07/14/17 08:30 (Morphine Inj) 4 mg Q3H PRN IV PUSH 07/14/17 08:30 (Narcan Inj) 0.4 mg UNSCH PRN IV PUSH 07/14/17 08:30 (Berna-Colace) 1 tab BID PO 07/14/17 09:00 (Milk Of Magnesia Liq) 30 ml Q12H PRN PO 07/14/17 08:30 (Senokot) 17.2 mg Q12H PRN PO 07/14/17 08:30 (Dulcolax Supp) 10 mg DAILY PRN RECTAL 07/14/17 08:30 (Lactulose Liq) 30 ml DAILY PRN PO 07/14/17 08:30 Family History Noncontributory Social History Visiting from [place] Physical Exam Vital Signs Vital Signs Date Time Temp Pulse Resp B/P (MAP) Pulse Ox O2 Delivery O2 Flow Rate FiO2 07/14/17 11:57 94 21 07/14/17 08:00 97.8 91 17 163/99 (120) 94 07/14/17 03:35 98.8 64 22 95 07/14/17 03:24 07/14/17 03:23 94 16 163/79 (107) 95 Room Air 07/13/17 23:55 94 16 96 Nasal Cannula 2.00 07/13/17 23:14 16 07/13/17 22:48 98.7 105 16 161/107 (125) 94 Physical Exam GENERAL: Pleasant 62-year-old male resting in bed in no acute distress. SKIN: Warm and dry. HEAD: Atraumatic. Normocephalic. EYES: Pupils equal and round. No scleral icterus. No injection or drainage. ENT: No nasal bleeding or discharge. Mucous membranes pink and moist. NECK: Trachea midline. CARDIOVASCULAR: Regular rate and rhythm. RESPIRATORY: No accessory muscle use. Clear to auscultation. Breath sounds equal bilaterally. GASTROINTESTINAL: Abdomen distended. No visible incisions on abdomen. NGT in place. MUSCULOSKELETAL: Extremities without clubbing, cyanosis, or edema. No obvious deformities. NEUROLOGICAL: Awake and alert. No obvious cranial nerve deficits. Motor grossly within normal limits. Five out of 5 muscle strength in the arms and legs. Normal speech. PSYCHIATRIC: Appropriate mood and affect; insight and judgment normal. Laboratory Laboratory Tests Test 07/13/17 23:55 07/14/17 00:30 White Blood Count 5.3 Red Blood Count 4.62 Hemoglobin 14.7 Hematocrit 43.4 Mean Corpuscular Volume 93.9 Mean Corpuscular Hemoglobin 31.8 Mean Corpuscular Hemoglobin Concent 33.9 Red Cell Distribution Width 13.1 Platelet Count 288 Mean Platelet Volume 7.3 Neutrophils (%) (Auto) 66.8 Lymphocytes (%) (Auto) 15.5 Monocytes (%) (Auto) 15.9 Eosinophils (%) (Auto) 1.5 Basophils (%) (Auto) 0.3 Neutrophils # (Auto) 3.5 Lymphocytes # (Auto) 0.8 Monocytes # (Auto) 0.8 Eosinophils # (Auto) 0.1 Basophils # (Auto) 0.0 CBC Comment AUTO DIFF Differential Total Cells Counted 100 Neutrophils % (Manual) 28 Band Neutrophils % 37 Lymphocytes % 18 Monocytes % 13 Neutrophils # (Manual) 3.7 Metamyelocytes 4 Differential Comment FINAL DIFF MANUAL Atypical Lymphocytes Toxic Vacuolation PRESENT Dohle Bodies PRESENT Platelet Estimate NORMAL Platelet Morphology Comment NORMAL Red Cell Morphology Comment NORMAL Blood Urea Nitrogen 38 Creatinine 1.34 Random Glucose 125 Total Protein 7.9 Albumin 3.5 Calcium Level 8.8 Alkaline Phosphatase 69 Aspartate Amino Transf (AST/SGOT) 26 Alanine Aminotransferase (ALT/SGPT) 34 Total Bilirubin 0.5 Sodium Level 138 Potassium Level 3.3 Chloride Level 99 Carbon Dioxide Level 29.2 Anion Gap 10 Estimat Glomerular Filtration Rate 54 Lipase 91 Urine Color YELLOW Urine Turbidity CLEAR Urine pH 6.0 Urine Specific [place] 1.032 Urine Protein 100 Urine Glucose (UA) NEG Urine Ketones TRACE Urine Occult Blood NEG Urine Nitrite NEG Urine Bilirubin NEG Urine Urobilinogen 2.0 Urine Leukocyte Esterase NEG Urine RBC 1 Urine WBC LESS THAN 1 Urine Renal Epithelial Cells <1 Urine Mucus FEW Microscopic Urinalysis Comment CULT NOT INDICATED Result Diagram: 07/13/17 2355 07/13/17 2355 Imaging Last 48 hours Impressions Abdomen X-Ray 07/14/17 0000 Signed Impressions: Service Date/Time: Friday, July 14, 2017 08:16 - CONCLUSION: 1. Abnormally dilated small bowel with air-fluid levels characteristic of a small bowel obstruction. 2. The level of obstruction is in the right lower quadrant where there is a 3 cm calcified lesion within the small bowel based on earlier CT. No pneumobilia is visualized to definitively diagnose gallstone ileus but that is a top consideration. Less likely a calcified small bowel mass or ingested foreign body could be the cause for the calcified lesion in the distal ileum. Zachary Villalpando MD Abdomen/Pelvis CT 07/13/17 2344 Signed Impressions: Service Date/Time: Friday, July 14, 2017 00:30 - CONCLUSION: 2 cm ossific density involving the terminal ileum with proximal dilatation characteristic of mechanical obstruction. MD Colton Bertrand VTE Risk Assessment Caprini VTE Risk Assessment: Mod/High Risk (score >= 2) VTE Pharm Contraindication: going to surgery today Caprini Risk Assessment Model Point Value = 1 Point Value = 2 Point Value = 3 Point Value = 5 Age 41-60 Minor surgery BMI > 25 kg/m2 Swollen legs Varicose veins or History of unexplained or recurrent spontaneous Oral contraceptives or hormone replacement Sepsis (< 1 month) Serious lung disease, including pneumonia (< 1 month) Abnormal pulmonary function Acute myocardial infarction Congestive heart failure (< 1 month) History of inflammatory bowel disease Medical patient at bed rest Age 61-74 Arthroscopic surgery Major open surgery (> 45 min) Laparoscopic surgery (> 45 min) Malignancy Confined to bed (> 72 hours) Immobilizing plaster cast Central venous access Age >= 75 History of VTE Family history of VTE Factor V Leiden Prothrombin [id number] Lupus anticoagulant Anticardiolipin antibodies Elevated serum homocysteine Heparin-induced thrombocytopenia Other congenital or acquired thrombophilia Stroke (< 1 month) Elective arthroplasty Hip, pelvis, or leg fracture Acute spinal cord injury (< 1 month) Prophylaxis Regimen Total Risk Factor Score Risk Level Prophylaxis Regimen 0-1 Low Early ambulation 2 Moderate Order ONE of the following: *Sequential Compression Device (SCD) *Heparin 5000 units SQ BID 3-4 Higher Order ONE of the following medications: *Heparin 5000 units SQ TID *Enoxaparin/Lovenox 40 mg SQ daily (WT < 150 kg, CrCl > 30 mL/min) *Enoxaparin/Lovenox 30 mg SQ daily (WT < 150 kg, CrCl > 10-29 mL/min) *Enoxaparin/Lovenox 30 mg SQ BID (WT < 150 kg, CrCl > 30 mL/min) AND/OR *Sequential Compression Device (SCD) 5 or more Highest Order ONE of the following medications: *Heparin 5000 units SQ TID (Preferred with Epidurals) *Enoxaparin/Lovenox 40 mg SQ daily (WT < 150 kg, CrCl > 30 mL/min) *Enoxaparin/Lovenox 30 mg SQ daily (WT < 150 kg, CrCl > 10-29 mL/min) *Enoxaparin/Lovenox 30 mg SQ BID (WT < 150 kg, CrCl > 30 mL/min) AND *Sequential Compression Device (SCD) Assessment and Plan Assessment and Plan 62 year old male SBO; likely gallstone ileus -Plan for diagnostic laparoscopy possible respiratory laparotomy this afternoon with Dr. Wood -NPO -Obtain consents -Plan discussed with family at bedside -All questions answered -Thank you for this consultation; we will continue to follow I certify and attest that I personally examined this patient on rounds with the [facility] [employer]. She documented our visit and entered orders in the EMR under my direct supervision. CHANELLE Dotson Plan to OR today for SBO for calcified mass, CHANELLE family and pt - they agree. OR notified ZANE WOOD MD FACS Discussed Condition With Dr. Wood Mr. Raymundo + family Esperanza [place] [employer] [employer] Jul 14, 2017 12:18 Zane Wood MD Jul 14, 2017 20:28
--- NOTE | 2017-07-14 15:07 | MB ---
cc: ZANE WOOD M.D., JOHN T. M.D. DATE OF CONSULTATION: 07/14/2017 CHIEF COMPLAINT Abdominal pain, nausea, vomiting. 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 She talked to me at 3:00 a.m. this morning regarding his visit to the emergency room with abdominal pain. She talked to me last evening about him as well and I instructed him to go to the emergency department if he was having problems. He started with about a three-day history of not being able to eat or drink anything since Wednesday. He began having bloating and pain. He was in town for a wedding the day before. For the last 3-4 days he has had the pain and bloating as mentioned. He presented to the emergency department. They placed a nasogastric tube, gave him IV fluid and did a CT scan of the abdomen and pelvis which showed a calcified lesion at the terminal ileum causing obstruction. The patient has never had a laparotomy and presumably has no internal adhesions causing obstruction. He has had a previous colonoscopy done 2 years ago showing some small polyps but was told that he did not need a colonoscopy but every 10 years, so I am presuming they were hyperplastic type polyps. He did not have colon cancer obviously at that time. PAST MEDICAL HISTORY, FAMILY HISTORY, SOCIAL HISTORY, REVIEW OF SYSTEMS: Otherwise negative. PHYSICAL EXAMINATION GENERAL: A well-developed, well-nourished male in no acute distress. SKIN: Warm and dry. HEENT: Extraocular muscles intact. NECK: Supple. CHEST: Clear. HEART: S1, S2 is heard. No murmurs or gallops. ABDOMEN: Obese but distended, soft, mildly tender throughout. There is tympany in the upper abdomen on percussion. RECTAL: Exam was not done. EXTREMITIES: Range of motion within normal limits. NEUROLOGIC: Grossly normal. IMAGING The CT scan shows a calcified 3 cm lesion in the terminal ileum stuck right at the ileocecal valve. It appears to be a gallstone. I spoke with Dr. Villalpando the radiologist about this. There is no air in the biliary system. The gallbladder is distended. It does not appear as if there is inflammation present between the gallbladder and the duodenum but this appears to be a gallstone ileus on CT scan. A follow-up abdominal x-ray was ordered for this morning. IMPRESSION Small bowel obstruction with a gallstone ileus. PLAN I have discussed this with the patient and his family at length. Dr. Zane Wood is also seeing the patient at present and I recommended that Dr. Wood take care of this problem as it seems to be a general surgical problem and possibly can be done laparoscopically. The family is pleased with this discussion and will follow through with Dr. Wood's recommendations. MD MIGUEL A Smart/EARL /2:39 PM /3:11 PM
[2017-07-14] MEDS ORDERED: BUPIVACAINE/EPINEPHRINE 0.25% 50 ML VIAL ONE (16:49)
[2017-07-14] MEDS ORDERED: ceFAZolin 2 GM PREMIX 50 ML ONE (17:18)
[2017-07-14] MEDS ORDERED: metroNIDAZOLE 500 MG INJ 100 ML IV ONE (17:18)
[2017-07-14] MEDS ORDERED: SUGAMMADEX SODIUM 200 MG/2 ML VIAL IV PUSH ONE ×2 (18:42)
[2017-07-14] MEDS ORDERED: ACETAMINOPHEN 1000 MG/100 ML 100 ML IV ONE (18:42)
[2017-07-14] MEDS ORDERED: SODIUM CHLORIDE 0.9% FLUSH 5 ML FLUSH IVF PRN (19:15)
[2017-07-14] MEDS ORDERED: KETOROLAC TROMETHAMINE 30 MG/ML (IVP) VIAL IVP PRN (19:15)
[2017-07-14] MEDS ORDERED: Post-op Orders (for Pharmacy) MISC XX ONE (19:15)
[2017-07-14] MEDS ORDERED: DO NOT ADM ANY ANTICOAGULANT DRUGS PRN (19:15)
[2017-07-14] MEDS: PANTOPRAZOLE SODIUM 40 MG VIAL IV PUSH SCH (20:26)
[2017-07-14] MEDS: SODIUM CHLORIDE 0.9% FLUSH 5 ML FLUSH IVF SCH (20:26)
[2017-07-14] MEDS: PCA - TOTAL MG MORPHINE DELIVERED PER SHIFT SCH (20:27)
[2017-07-14] MEDS: D5-NS + KCL 20 MEQ INJ 1,000 ML IV SCH ×2 (20:27→20:43)
[2017-07-14] MEDS: MORPHINE SULFATE 30 MG/30 ML PCA IV SCH (20:44)
[2017-07-15] VITALS (8 sets, daily range): BP systolic 128–164; BP diastolic 81–99; PULSE 87–100; RESP 16–20; TEMP 95.8–98.8; O2SAT 94–98
--- NOTE | 2017-07-15 00:01 | MP ---
cc: ZANE WOOD M.D. DATE OF SURGERY: 07/14/2017 PREOPERATIVE DIAGNOSIS: 1. Small bowel obstruction secondary to calcified mass, right lower quadrant. 2. 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 POSTOPERATIVE DIAGNOSIS: 1. Small bowel obstruction secondary to calcified mass, right lower quadrant. 2. 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 PROCEDURE PERFORMED: Diagnostic laparoscopy. Exploratory laparotomy. Resection of small bowel diverticulum and calcified mass. SURGEON Zane Wood MD. 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 ANESTHESIA: General endotracheal anesthesia. COMPLICATIONS None. INDICATIONS FOR PROCEDURE: Mr. Raymundo is a pleasant 62-year-old gentleman who presented to the emergency department with a several-day history of nausea, vomiting, abdominal distension. He is actually down here on vacation, just arrived last night. He was seen and evaluated in the ER and had a CT scan. This showed a small bowel obstruction secondary to calcified mass in the right lower quadrant. There was a concern about possible gallstone ileus, although the patient had a normal-appearing gallbladder and did not have an inflammatory phlegmon or any new mobility in the right upper quadrant. It is felt this calcified mass was causing the obstruction. I recommended immediate operative intervention and him and his family were agreeable. INTRAOPERATIVE FINDINGS The patient had a small bowel diverticulum with a calcified mass within it. This was twisted and had adhesions in the right middle quadrant to the small bowel causing a closed loop obstruction. We were able to free the obstruction but open the patient in order to run the bowel in a retrograde fashion and decompress it and also resect the diverticulum and mass. DETAILS The patient was identified, brought to the operating room, placed supine on the operating room table. Adequate general endotracheal anesthesia was achieved the abdomen is prepped and draped in standard surgical fashion. Supraumbilical space was anesthetized with 0.25% Marcaine. Supraumbilical incision was made. Dissection was carried down to the subcutaneous tissues and midline fascia. Midline fascia was then incised sharply. A finger was then placed in the peritoneal cavity without difficulty. Blunt balloon trocar was inserted and the abdomen was insufflated to 15 mmHg using CO2 gas. Next two 5 mm trocars were placed in the upper midline under direct vision. A 30 degree laparoscope was used to inspect the right lower quadrant where the mass was identified. There was a closed loop obstruction with adhesions from the mass to the adjacent loops of small bowel and then another loop of bowel coming underneath this causing the obstruction. Using sharp dissection we were able to free up the internal hernia and the small bowel. The patient had a very large diverticulum with a calcified mass within it. Because the bowel was markedly distended proximally, I elected to perform a mini laparotomy and open the patient up in order to decompress the small bowel proximally and then also resect the diverticulum and mass with the stapler. The port sites were all connected in the upper midline and the fascia opened with electrocautery Bovie. An Erik wound protector was then placed. The small bowel was brought over to the operative site. There were some additional adhesions on the small bowel between the loops and these were taken down with sharp dissection. Once we did this, the small bowel was completely freed up. Attention was first directed to the proximal small bowel. The patient had a very distal small bowel obstruction and we therefore milked the small bowel back in a retrograde fashion retrieving approximately 2 liters of succus entericus. Once we did this we redirected our attention to the diverticulum. The large calcified mass was in the diverticulum. The patient had a generous small bowel mouth and we therefore placed a 75 CHACORTA across it and fired it. This did not compromise the small bowel as the small bowel was distended from the obstruction and there was generous lumen. The specimen was passed off and sent to pathology for analysis. Next the entire small bowel was run from the ileocecal valve retrograde to the ligament of Treitz. There were no other abnormalities noted. Mesentery was inspected and there was no bleeding. The staple site was inspected and it was widely patent. We are able to milk fluid easily passed it in both directions and it was very generous as the small bowel was markedly dilated. At this point the small bowel was returned to its anatomic position in the abdominal cavity. The stomach was palpated and the NG was in good position. We sucked back about two liters of succus entericus via the NG tube. The omentum was then placed over the small bowel and attention was directed to closure. Closure was accomplished using #1 looped PDS in continuous running fashion. Subcutaneous tissue was copiously irrigated and closed with 3-0 Vicryl. Skin was closed with skin stapling device. The patient tolerated the procedure well and was transferred to the PACU in stable condition. MD MELINDA Mendez /7:27 PM /11:52 PM
[2017-07-15] MEDS: MORPHINE SULFATE 30 MG/30 ML PCA IV SCH ×2 (05:05→19:57)
[2017-07-15] MEDS: PCA - TOTAL MG MORPHINE DELIVERED PER SHIFT SCH ×3 (05:07→19:59)
[2017-07-15 07:41] LABS: AUTOMATED NEUTROPHIL # 5.3 TH/MM3 (1.8-7.7); BASOPHIL % 0.1 % (0.0-2.0); EOSINOPHIL % 0.1 % (0.0-4.0); HEMATOCRIT 38.3 % (39.0-51.0); HEMO FLAGS DIFF FINAL; LYMPH % 10.3 % (9.0-44.0); LYMPHOCYTE # 0.7 TH/MM3 (1.0-4.8); MEAN CORPUSCULAR HEMOGLOBIN 32.6 PG (27.0-34.0); MEAN CORPUSCULAR HGB CONC 34.3 % (32.0-36.0); MONO % 11.9 % (0.0-8.0); NEUT % 77.6 % (16.0-70.0); PLATELET COUNT 245 TH/MM3 (150-450); RED BLOOD COUNT 4.03 MIL/MM3 (4.50-5.90); RED CELL DISTRIBUTION WIDTH 13.4 % (11.6-17.2); WHITE BLOOD COUNT 6.9 TH/MM3 (4.0-11.0)
[2017-07-15 08:05] LABS: ALKALINE PHOSPHATASE 51 U/L (45-117); ALT (GPT) 29 U/L (12-78); ANION GAP 7 MEQ/L (5-15); AST (GOT) 16 U/L (15-37); BICARBONATE 28.5 MEQ/L (21.0-32.0); BLOOD UREA NITROGEN 27 MG/DL (7-18); CHLORIDE 107 MEQ/L (98-107); FREE T4 1.43 NG/DL (0.76-1.46); GLOMERULAR FILTRATION RATE 62 ML/MIN (>89); MAGNESIUM 2.2 MG/DL (1.5-2.5); POTASSIUM 4.1 MEQ/L (3.5-5.1); SODIUM (NA) 142 MEQ/L (136-145); TOTAL BILIRUBIN ADULT 0.3 MG/DL (0.2-1.0)
[2017-07-15] MEDS: DOCUSATE SODIUM 50 MG/SENNA 8.6 MG TAB PO SCH ×2 (09:00→20:57)
[2017-07-15] MEDS: SODIUM CHLORIDE 0.9% FLUSH 5 ML FLUSH IVF SCH ×2 (09:00→20:00)
[2017-07-15] MEDS: D5-NS + KCL 20 MEQ INJ 1,000 ML IV SCH ×2 (11:15→20:00)
--- NOTE | 2017-07-15 11:45 | HHI.PR ---
Subjective Remarks Patient is a 62-year-old male. He was having abdominal pain since Wednesday. The pain has been intermittent abdominal pain on the lower abdomen as 8 out of 10 that is been nonradiating. Patient denies any nausea vomiting or diarrhea or fevers or chest pain. States his pain improved with vomiting His primary care physician is in [place] is visiting Has been seen by surgery and is scheduled to go for a laparoscopic procedure today of his abdomen 11 patient had procedure yesterday. Seen by surgery. Discussed with patient and RN Still has NG tube in place Increase activity and ambulate Have discussed with surgery and Patient and RN and family Objective Vitals Vital Signs Date Time Temp Pulse Resp B/P (MAP) Pulse Ox O2 Delivery O2 Flow Rate FiO2 07/15/17 08:00 98.0 87 18 162/99 (120) 98 07/15/17 07:15 16 07/15/17 05:07 18 07/15/17 05:05 18 07/15/17 04:00 96.1 90 17 149/96 (113) 97 07/15/17 00:00 95.8 88 16 128/81 (97) 96 07/14/17 20:45 18 07/14/17 20:44 15 07/14/17 20:27 18 07/14/17 20:00 96.0 92 17 141/86 (104) 96 07/14/17 20:00 90 23 133/78 (96) 95 Nasal Cannula 4 07/14/17 19:45 91 23 156/78 (104) 95 Nasal Cannula 4 07/14/17 19:14 89 20 141/74 (96) 94 Nasal Cannula 4 07/14/17 19:11 98.2 90 15 144/76 (98) 94 Nasal Cannula 4 07/14/17 17:56 Nasal Cannula 4.00 07/14/17 16:00 97.3 89 17 151/95 (113) 94 07/14/17 12:00 97.6 86 18 161/96 (117) 94 07/14/17 11:57 94 21 I/O 07/14/17 07/14/17 07/14/17 07/15/17 07/15/17 07/15/17 07:00 15:00 23:00 07:00 15:00 23:00 Intake Total 350 ml 850 ml 2100 ml 840 ml Output Total 1025 ml 250 ml 425 ml 730 ml Balance -675 ml 600 ml 1675 ml 110 ml Intake Oral 0 ml 240 ml IV Total 350 ml 850 ml 600 ml Other 2100 ml Output Urine Total 250 ml 430 ml Gastric Drainage Total 1025 ml 325 ml 300 ml Estimated Blood Loss 100 ml # Voids 2 # Bowel Movements 1 Result Diagram: 07/15/17 0612 07/15/17 0612 Other Results Laboratory Tests Test 07/13/17 23:55 07/14/17 00:30 07/15/17 06:12 White Blood Count 5.3 TH/MM3 6.9 TH/MM3 Red Blood Count 4.62 MIL/MM3 4.03 MIL/MM3 Hemoglobin 14.7 GM/DL 13.2 GM/DL Hematocrit 43.4 % 38.3 % Mean Corpuscular Volume 93.9 FL 95.0 FL Mean Corpuscular Hemoglobin 31.8 PG 32.6 PG Mean Corpuscular Hemoglobin Concent 33.9 % 34.3 % Red Cell Distribution Width 13.1 % 13.4 % Platelet Count 288 TH/MM3 245 TH/MM3 Mean Platelet Volume 7.3 FL 7.4 FL Neutrophils (%) (Auto) 66.8 % 77.6 % Lymphocytes (%) (Auto) 15.5 % 10.3 % Monocytes (%) (Auto) 15.9 % 11.9 % Eosinophils (%) (Auto) 1.5 % 0.1 % Basophils (%) (Auto) 0.3 % 0.1 % Neutrophils # (Auto) 3.5 TH/MM3 5.3 TH/MM3 Lymphocytes # (Auto) 0.8 TH/MM3 0.7 TH/MM3 Monocytes # (Auto) 0.8 TH/MM3 0.8 TH/MM3 Eosinophils # (Auto) 0.1 TH/MM3 0.0 TH/MM3 Basophils # (Auto) 0.0 TH/MM3 0.0 TH/MM3 CBC Comment AUTO DIFF DIFF FINAL Differential Total Cells Counted 100 Neutrophils % (Manual) 28 % Band Neutrophils % 37 % Lymphocytes % 18 % Monocytes % 13 % Neutrophils # (Manual) 3.7 TH/MM3 Metamyelocytes 4 % Differential Comment FINAL DIFF MANUAL Atypical Lymphocytes % Toxic Vacuolation PRESENT Dohle Bodies PRESENT Platelet Estimate NORMAL Platelet Morphology Comment NORMAL Red Cell Morphology Comment NORMAL Blood Urea Nitrogen 38 MG/DL 27 MG/DL Creatinine 1.34 MG/DL 1.18 MG/DL Random Glucose 125 MG/DL 149 MG/DL Total Protein 7.9 GM/DL 5.9 GM/DL Albumin 3.5 GM/DL 2.4 GM/DL Calcium Level 8.8 MG/DL 7.6 MG/DL Alkaline Phosphatase 69 U/L 51 U/L Aspartate Amino Transf (AST/SGOT) 26 U/L 16 U/L Alanine Aminotransferase (ALT/SGPT) 34 U/L 29 U/L Total Bilirubin 0.5 MG/DL 0.3 MG/DL Sodium Level 138 MEQ/L 142 MEQ/L Potassium Level 3.3 MEQ/L 4.1 MEQ/L Chloride Level 99 MEQ/L 107 MEQ/L Carbon Dioxide Level 29.2 MEQ/L 28.5 MEQ/L Anion Gap 10 MEQ/L 7 MEQ/L Estimat Glomerular Filtration Rate 54 ML/MIN 62 ML/MIN Lipase 91 U/L Urine Color YELLOW Urine Turbidity CLEAR Urine pH 6.0 Urine Specific Warren 1.032 Urine Protein 100 mg/dL Urine Glucose (UA) NEG mg/dL Urine Ketones TRACE mg/dL Urine Occult Blood NEG Urine Nitrite NEG Urine Bilirubin NEG Urine Urobilinogen 2.0 MG/DL Urine Leukocyte Esterase NEG Urine RBC 1 /hpf Urine WBC LESS THAN 1 /hpf Urine Renal Epithelial Cells <1 /hpf Urine Mucus FEW /lpf Microscopic Urinalysis Comment CULT NOT INDICATED Phosphorus Level 2.2 MG/DL Magnesium Level 2.2 MG/DL Free Thyroxine 1.43 NG/DL Thyroid Stimulating Hormone 3rd Gen 1.170 uIU/ML Imaging Last Impressions Abdomen X-Ray 07/14/17 0000 Signed Impressions: Service Date/Time: Friday, July 14, 2017 08:16 - CONCLUSION: 1. Abnormally dilated small bowel with air-fluid levels characteristic of a small bowel obstruction. 2. The level of obstruction is in the right lower quadrant where there is a 3 cm calcified lesion within the small bowel based on earlier CT. No pneumobilia is visualized to definitively diagnose gallstone ileus but that is a top consideration. Less likely a calcified small bowel mass or ingested foreign body could be the cause for the calcified lesion in the distal ileum. Zachary Villalpando MD Abdomen/Pelvis CT 07/13/17 2344 Signed Impressions: Service Date/Time: Friday, July 14, 2017 00:30 - CONCLUSION: 2 cm ossific density involving the terminal ileum with proximal dilatation characteristic of mechanical obstruction. Titi Blunt MD Objective Remarks GENERAL: Awake alert talkative and cooperative still has NG tube in place SKIN: Warm and dry. HEAD: Atraumatic. Normocephalic. EYES: Pupils equal and round. No scleral icterus. No injection or drainage. EOMI ENT: No nasal bleeding or discharge. Mucous membranes pink and moist. Tongue midline NGT NECK: Trachea midline. No JVD. Neck supple CARDIOVASCULAR: Regular rate and rhythm. S1 and S2 no S3 or S4 RESPIRATORY: No accessory muscle use. Clear to auscultation. Breath sounds equal bilaterally. GASTROINTESTINAL: Abdomen soft, non-tender, nondistended. Hepatic and splenic margins not palpable. Hypoactive bowel sounds -dressed MUSCULOSKELETAL: Extremities without clubbing, cyanosis, or edema. No obvious deformities. NEUROLOGICAL: Awake and alert. No obvious cranial nerve deficits. Motor grossly within normal limits. Five out of 5 muscle strength in the arms and legs. Normal speech. PSYCHIATRIC: Appropriate mood and affect; insight and judgment normal. Procedures ZANE WOOD M.D. DATE OF SURGERY: 07/14/2017 PREOPERATIVE DIAGNOSIS: 1. Small bowel obstruction secondary to calcified mass, right lower quadrant. 2. 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 POSTOPERATIVE DIAGNOSIS: 1. Small bowel obstruction secondary to calcified mass, right lower quadrant. 2. 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 PROCEDURE PERFORMED: Diagnostic laparoscopy. Exploratory laparotomy. Resection of small bowel diverticulum and calcified mass. SURGEON Zane Wood MD. CONTRACT PREPARER Beverley. ANESTHESIA: General endotracheal anesthesia. COMPLICATIONS None. INDICATIONS FOR PROCEDURE: Mr. Raymundo is a pleasant 62-year-old gentleman who presented to the emergency department with a several-day history of nausea, vomiting, abdominal distension. He is actually down here on vacation, just arrived last night. He was seen and evaluated in the ER and had a CT scan. This showed a small bowel obstruction secondary to calcified mass in the right lower quadrant. There was a concern about possible gallstone ileus, although the patient had a normal-appearing gallbladder and did not have an inflammatory phlegmon or any new mobility in the right upper quadrant. It is felt this calcified mass was causing the obstruction. I recommended immediate operative intervention and him and his family were agreeable. INTRAOPERATIVE FINDINGS The patient had a small bowel diverticulum with a calcified mass within it. This was twisted and had adhesions in the right middle quadrant to the small bowel causing a closed loop obstruction. We were able to free the obstruction but open the patient in order to run the bowel in a retrograde fashion and decompress it and also resect the diverticulum and mass. DETAILS The patient was identified, brought to the operating room, placed supine on the operating room table. Adequate general endotracheal anesthesia was achieved the abdomen is prepped and draped in standard surgical fashion. Supraumbilical space was anesthetized with 0.25% Marcaine. Supraumbilical incision was made. Dissection was carried down to the subcutaneous tissues and midline fascia. Midline fascia was then incised sharply. A finger was then placed in the peritoneal cavity without difficulty. Blunt balloon trocar was inserted and the abdomen was insufflated to 15 mmHg using CO2 gas. Next two 5 mm trocars were placed in the upper midline under direct vision. A 30 degree laparoscope was used to inspect the right lower quadrant where the mass was identified. There was a closed loop obstruction with adhesions from the mass to the adjacent loops of small bowel and then another loop of bowel coming underneath this causing the obstruction. Using sharp dissection we were able to free up the internal hernia and the small bowel. The patient had a very large diverticulum with a calcified mass within it. Because the bowel was markedly distended proximally, I elected to perform a mini laparotomy and open the patient up in order to decompress the small bowel proximally and then also resect the diverticulum and mass with the stapler. The port sites were all connected in the upper midline and the fascia opened with electrocautery Bovie. An Erik wound protector was then placed. The small bowel was brought over to the operative site. There were some additional adhesions on the small bowel between the loops and these were taken down with sharp dissection. Once we did this, the small bowel was completely freed up. Attention was first directed to the proximal small bowel. The patient had a very distal small bowel obstruction and we therefore milked the small bowel back in a retrograde fashion retrieving approximately 2 liters of succus entericus. Once we did this we redirected our attention to the diverticulum. The large calcified mass was in the diverticulum. The patient had a generous small bowel mouth and we therefore placed a 75 CHACORTA across it and fired it. This did not compromise the small bowel as the small bowel was distended from the obstruction and there was generous lumen. The specimen was passed off and sent to pathology for analysis. Next the entire small bowel was run from the ileocecal valve retrograde to the ligament of Treitz. There were no other abnormalities noted. Mesentery was inspected and there was no bleeding. The staple site was inspected and it was widely patent. We are able to milk fluid easily passed it in both directions and it was very generous as the small bowel was markedly dilated. At this point the small bowel was returned to its anatomic position in the abdominal cavity. The stomach was palpated and the NG was in good position. We sucked back about two liters of succus entericus via the NG tube. The omentum was then placed over the small bowel and attention was directed to closure. Closure was accomplished using #1 looped PDS in continuous running fashion. Subcutaneous tissue was copiously irrigated and closed with 3-0 Vicryl. Skin was closed with skin stapling device. The patient tolerated the procedure well and was transferred to the PACU in stable condition. Zane MD Valentín Medications and IVs Current Medications Morphine Sulfate (Morphine Inj) 4 mg ONCE ONCE IV PUSH Last administered on 00:00; Start 07/13/17 at 23:45; Stop 07/13/17 at 23:46; Status DC Ondansetron HCl (Zofran Inj) 4 mg ONCE ONCE IVP Last administered on 23:59; Start 07/13/17 at 23:45; Stop 07/13/17 at 23:46; Status DC Sodium Chloride (NS Flush) 2 ml UNSCH PRN IV FLUSH FLUSH AFTER USING IV ACCESS ; Start 07/13/17 at 23:45; Status Cancel Sodium Chloride 1,000 ml @ 200 mls/hr Q5H IV Last administered on 07/14/17 05 :16; Start 07/14/17 at 02:18; Stop 07/14/17 at 20:12; Status DC Sodium Chloride (NS Flush) 2 ml UNSCH PRN IV FLUSH FLUSH AFTER USING IV ACCESS ; Start 07/14/17 at 02:30; Stop 07/14/17 at 20:05; Status DC Sodium Chloride (NS Flush) 2 ml BID IV FLUSH ; Start 07/14/17 at 09:00; Stop at 20:05; Status DC Ondansetron HCl (Zofran Inj) 4 mg Q6H PRN IVP NAUSEA OR VOMITING; Start at 02:30; Stop 07/14/17 at 08:55; Status DC Naloxone HCl (Narcan Inj) 0.4 mg UNSCH PRN IV PUSH SEE LABEL COMMENTS; Start 07/14/17 at 02:30; Stop 07/14/17 at 08:55; Status DC Potassium Chloride 100 ml @ 50 mls/hr Q2H IV Last administered on 07/14/17t 05 :17; Start 07/14/17 at 02:30; Stop 07/14/17 at 06:29; Status DC Sodium Chloride (NS Flush) 2 ml UNSCH PRN IV FLUSH FLUSH AFTER USING IV ACCESS ; Start 07/14/17 at 08:30; Stop 07/14/17 at 08:55; Status DC Sodium Chloride (NS Flush) 2 ml BID IV FLUSH ; Start 07/14/17 at 09:00; Stop at 09:00; Status DC Acetaminophen (Tylenol) 650 mg Q4H PRN PO TEMP > 100.4; Start 07/14/17 at 08:30 Ondansetron HCl (Zofran Inj) 4 mg Q6H PRN IVP NAUSEA OR VOMITING; Start at 08:30 Prochlorperazine (Compazine Supp) 25 mg Q12H PRN RECTAL NAUSEA OR VOMITING; Start 07/14/17 at 08:30 Acetaminophen (Tylenol) 650 mg Q6H PRN PO PAIN SCALE 1 TO 2; Start 07/14/17 at 08:30 Oxycodone/ Acetaminophen (Percocet 5-325 Mg) 1 tab Q6H PRN PO PAIN SCALE 3 TO 5; Start 07/14/17 at 08:30 Oxycodone/ Acetaminophen (Percocet 10-325 Mg) 1 tab Q6H PRN PO PAIN SCALE 6 TO 10; Start 07/14/17 at 08:30 Morphine Sulfate (Morphine Inj) 2 mg Q3H PRN IV PUSH Pain 3-5; if unable to take PO; Start 07/14/17 at 08:30 Morphine Sulfate (Morphine Inj) 4 mg Q3H PRN IV PUSH Pain 6-10;if unable to take PO; Start 07/14/17 at 08:30 Naloxone HCl (Narcan Inj) 0.4 mg UNSCH PRN IV PUSH SEE LABEL COMMENTS; Start 07/14/17 at 08:30 Senna/Docusate Sodium (Berna-Colace) 1 tab BID PO ; Start 07/14/17 at 09:00 Magnesium Hydroxide (Milk Of Magnesia Liq) 30 ml Q12H PRN PO Mild constipation ; Start 07/14/17 at 08:30 Sennosides (Senokot) 17.2 mg Q12H PRN PO Moderate constipation; Start 07/14/17 at 08:30 Bisacodyl (Dulcolax Supp) 10 mg DAILY PRN RECTAL SEVERE CONSITIPATION; Start 07/14/17 at 08:30 Lactulose (Lactulose Liq) 30 ml DAILY PRN PO SEVERE CONSITIPATION; Start at 08:30 Bupivacaine HCl/ Epinephrine Bitart (Sensorcaine-Epinephrine 0.25% Inj) 50 ml STK-MED ONCE .ROUTE Last administered on 07/14/17 17:30; Start 07/14/17 at 16: 49; Stop 07/14/17 at 16:50; Status DC Metronidazole 100 ml @ As Directed STK-MED ONCE IV Last administered on 17:27; Start 07/14/17 at 17:18; Stop 07/14/17 at 17:19; Status DC Cefazolin Sodium/ Dextrose 50 ml @ As Directed STK-MED ONCE .ROUTE Last administered on 07/14/17 17:25; Start 07/14/17 at 17:18; Stop 07/14/17 at 17:19 ; Status DC Acetaminophen 100 ml @ As Directed STK-MED ONCE IV ; Start 07/14/17 at 18:42; Stop 07/14/17 at 18:43; Status DC Sugammadex Sodium (Bridion Inj) 400 mg STK-MED ONCE IV PUSH ; Start 07/14/17 at 18:42; Stop 07/14/17 at 18:43; Status DC Potassium Chloride/Dextrose/ Sod Cl 1,000 ml @ 125 mls/hr Q8H IV Last administered on 07/15/17 11:15; Start 07/14/17 at 19:15 IV Flush (NS Flush) 2 ml UNSCH PRN IVF FLUSH AFTER USING IV ACCESS; Start 07/14 at 19:15 IV Flush (NS Flush) 2 ml BID IVF ; Start 07/14/17 at 21:00 Ketorolac Tromethamine (Toradol Inj) 30 mg Q6H PRN IVP PAIN SCALE 1 TO 5; Start 07/14/17 at 19:15; Stop 07/19/17 at 19:14 Miscellaneous Information (Post-op Orders (for Pharmacy)) STAT ONCE XX ; Start 07/14/17 at 19:15; Stop 07/14/17 at 20:17; Status DC Miscellaneous Information 1 ONCE ONCE XX ; Start 07/14/17 at 19:15; Stop at 19:16; Status UNV Enoxaparin Sodium (Lovenox Inj) 30 mg Q24H SQ ; Start 07/15/17 at 18:00 Morphine Sulfate (Morphine 1 Mg/ ml CLAIMS ADJUSTOR) 30 mg UNSCH IV Last administered on 05:05; Start 07/14/17 at 19:15 CLAIMS ADJUSTOR Dosage Infused (Pha) 1 Q8HR .XX Last administered on 07/15/17 05:07; Start 07/14/17 at 22:00 Pantoprazole Sodium (Protonix Inj) 40 mg Q24H IV PUSH Last administered on 07/14 20:26; Start 07/14/17 at 21:00 Miscellaneous Information ALL NURSING DEPARTME... UNSCH PRN .XX SEE LABEL COMMENTS; Start 07/14/17 at 19:15; Stop 07/15/17 at 19:14 A/P Problem List: (1) Depression ICD Code: F32.9 - Major depressive disorder, single episode, unspecified (2) Hypokalemia ICD Code: E87.6 - Hypokalemia (3) Hyperlipidemia ICD Code: E78.5 - Hyperlipidemia, unspecified (4) SBO (small bowel obstruction) ICD Code: K56.609 - Unspecified intestinal obstruction, unspecified as to partial versus complete obstruction (5) Abdominal pain ICD Code: R10.9 - Unspecified abdominal pain (6) Hypertension ICD Code: I10 - Essential (primary) hypertension Assessment and Plan Abdominal pain with small bowel obstruction per CAT scan Had diagnostic laparoscopy by Dr. Zane Wood of surgery 07-14 for suspected obstructing gallstone in the small bowel 1. Small bowel obstruction secondary to calcified mass, right lower quadrant. 2. 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 Hypertension we'll restart meds once able to take oral medications Anxiety/DEPRESSION we'll restart medications once able to take oral medications Hyperlipidemia we'll restart medications once able to take by mouth medications Renal insufficiency/slight dehydration Monitor labs Pain control and antibiotics as needed Continue on IV fluids Diet per surgery Increase activity A.m. labs Discharge Planning Surgical clearance Alhaji Riley DO Jul 15, 2017 11:45
[2017-07-15 17:06] LABS: HEMOGLOBIN A1a 1.5 %; HEMOGLOBIN A1b 0.9 %; HEMOGLOBIN Ao 83.2 %; HEMOGLOBIN LA1C 2.6 %; HEMOGLOBIN P3 5.7 %
--- NOTE | 2017-07-15 17:16 | HHI.PR ---
Subjective Subjective Notes Resting in bed No issues overnight at bedside Objective Vitals/I&O Vital Signs Date Time Temp Pulse Resp B/P (MAP) Pulse Ox O2 Delivery O2 Flow Rate FiO2 07/15/17 11:45 98.2 91 18 146/97 (113) 96 07/15/17 09:07 Nasal Cannula 2.00 07/14/17 17:56 Labs Laboratory Tests Test 07/15/17 06:12 White Blood Count 6.9 Red Blood Count 4.03 Hemoglobin 13.2 Hematocrit 38.3 Mean Corpuscular Volume 95.0 Mean Corpuscular Hemoglobin 32.6 Mean Corpuscular Hemoglobin Concent 34.3 Red Cell Distribution Width 13.4 Platelet Count 245 Mean Platelet Volume 7.4 Neutrophils (%) (Auto) 77.6 Lymphocytes (%) (Auto) 10.3 Monocytes (%) (Auto) 11.9 Eosinophils (%) (Auto) 0.1 Basophils (%) (Auto) 0.1 Neutrophils # (Auto) 5.3 Lymphocytes # (Auto) 0.7 Monocytes # (Auto) 0.8 Eosinophils # (Auto) 0.0 Basophils # (Auto) 0.0 CBC Comment DIFF FINAL Differential Comment Blood Urea Nitrogen 27 Creatinine 1.18 Random Glucose 149 Total Protein 5.9 Albumin 2.4 Calcium Level 7.6 Phosphorus Level 2.2 Magnesium Level 2.2 Alkaline Phosphatase 51 Aspartate Amino Transf (AST/SGOT) 16 Alanine Aminotransferase (ALT/SGPT) 29 Total Bilirubin 0.3 Sodium Level 142 Potassium Level 4.1 Chloride Level 107 Carbon Dioxide Level 28.5 Anion Gap 7 Estimat Glomerular Filtration Rate 62 Free Thyroxine 1.43 Thyroid Stimulating Hormone 3rd Gen 1.170 Radiology Last 48 hours Impressions Abdomen X-Ray 07/14/17 0000 Signed Impressions: Service Date/Time: Friday, July 14, 2017 08:16 - CONCLUSION: 1. Abnormally dilated small bowel with air-fluid levels characteristic of a small bowel obstruction. 2. The level of obstruction is in the right lower quadrant where there is a 3 cm calcified lesion within the small bowel based on earlier CT. No pneumobilia is visualized to definitively diagnose gallstone ileus but that is a top consideration. Less likely a calcified small bowel mass or ingested foreign body could be the cause for the calcified lesion in the distal ileum. Zachary Villalpando MD Abdomen/Pelvis CT 07/13/17 [id number] Signed Impressions: Service Date/Time: Friday, July 14, 2017 00:30 - CONCLUSION: 2 cm ossific density involving the terminal ileum with proximal dilatation characteristic of mechanical obstruction. Titi Blunt MD Cardiovascular: Regular Lungs: Clear Abdomen: Other (Dressing in place; c/d/i ) Extremities: No edema A/P Assessment and Plan 62 year old male POD1 dx lap; ex lap; resection of small bowel diverticulum and calcified mass -Continue NGT to LIWS -Okay for ice chips -IVF -Okay to restart essential home medications -Esperanza Adair Jul 15, 2017 17:16
[2017-07-15] MEDS: ENOXAPARIN SODIUM 30 MG/0.3 ML SYRINGE SQ SCH (17:27)
[2017-07-15] MEDS: PANTOPRAZOLE SODIUM 40 MG VIAL IV PUSH SCH (19:59)
[2017-07-15] MEDS: PRAVASTATIN SOD 40 MG TAB PO SCH (20:56)
[2017-07-15] MEDS: LISINOPRIL 20 MG TAB PO SCH (20:56)
[2017-07-15] MEDS ORDERED: NON-FORMULARY DRUG (Fish Oil-Cholecalciferol (Fish Oil + D3) 1 CAP) PO SCH (21:00)
[2017-07-16] VITALS (8 sets, daily range): BP systolic 148–164; BP diastolic 84–102; PULSE 92–105; RESP 17–20; TEMP 96.3–99.7; O2SAT 93–97
[2017-07-16] MEDS: D5-NS + KCL 20 MEQ INJ 1,000 ML IV SCH ×3 (02:00→18:42)
[2017-07-16] MEDS: PCA - TOTAL MG MORPHINE DELIVERED PER SHIFT SCH ×3 (05:17→21:51)
[2017-07-16 07:09] LABS: AUTOMATED NEUTROPHIL # 6.8 TH/MM3 (1.8-7.7); BASOPHIL % 0.2 % (0.0-2.0); EOSINOPHIL # 0.2 TH/MM3 (0-0.4); EOSINOPHIL % 2.5 % (0.0-4.0); HEMATOCRIT 36.4 % (39.0-51.0); LYMPHOCYTE # 0.9 TH/MM3 (1.0-4.8); MEAN CELL VOLUME 96.1 FL (80.0-100.0); MEAN CORPUSCULAR HEMOGLOBIN 32.4 PG (27.0-34.0); MEAN CORPUSCULAR HGB CONC 33.7 % (32.0-36.0); MONO % 9.6 % (0.0-8.0); NEUT % 77.7 % (16.0-70.0); PLATELET COUNT 220 TH/MM3 (150-450); RED BLOOD COUNT 3.79 MIL/MM3 (4.50-5.90); RED CELL DISTRIBUTION WIDTH 13.4 % (11.6-17.2); WHITE BLOOD COUNT 8.7 TH/MM3 (4.0-11.0)
[2017-07-16 07:13] LABS: HEMO FLAGS AUTO DIFF
--- NOTE | 2017-07-16 07:22 | HHI.PR ---
Subjective Subjective Notes feels ok, no BM or flatus yet, no nausea Objective Vitals/I&O Vital Signs Date Time Temp Pulse Resp B/P (MAP) Pulse Ox O2 Delivery O2 Flow Rate FiO2 07/16/17 05:18 17 07/16/17 04:00 96.3 97 150/98 (115) 94 07/15/17 20:14 Nasal Cannula 2.00 07/14/17 17:56 Labs Laboratory Tests Test 07/16/17 05:13 White Blood Count 8.7 Red Blood Count 3.79 Hemoglobin 12.3 Hematocrit 36.4 Mean Corpuscular Volume 96.1 Mean Corpuscular Hemoglobin 32.4 Mean Corpuscular Hemoglobin Concent 33.7 Red Cell Distribution Width 13.4 Platelet Count 220 Mean Platelet Volume 7.3 Neutrophils (%) (Auto) 77.7 Lymphocytes (%) (Auto) 10.0 Monocytes (%) (Auto) 9.6 Eosinophils (%) (Auto) 2.5 Basophils (%) (Auto) 0.2 Neutrophils # (Auto) 6.8 Lymphocytes # (Auto) 0.9 Monocytes # (Auto) 0.8 Eosinophils # (Auto) 0.2 Basophils # (Auto) 0.0 CBC Comment AUTO DIFF Radiology Last 48 hours Impressions Abdomen X-Ray 07/14/17 0000 Signed Impressions: Service Date/Time: Friday, July 14, 2017 08:16 - CONCLUSION: 1. Abnormally dilated small bowel with air-fluid levels characteristic of a small bowel obstruction. 2. The level of obstruction is in the right lower quadrant where there is a 3 cm calcified lesion within the small bowel based on earlier CT. No pneumobilia is visualized to definitively diagnose gallstone ileus but that is a top consideration. Less likely a calcified small bowel mass or ingested foreign body could be the cause for the calcified lesion in the distal ileum. Zachary Villalpando MD Abdomen/Pelvis CT 07/13/17 2344 Signed Impressions: Service Date/Time: Friday, July 14, 2017 00:30 - CONCLUSION: 2 cm ossific density involving the terminal ileum with proximal dilatation characteristic of mechanical obstruction. Titi Blunt MD Abdomen: Post-op tenderness, BS normal Wound Wound : Wound Location: Abdomen Appearance: Clean & Dry Dressing: VAC A/P Assessment and Plan POD2 exp lap, sbo, resection of SB diverticulum will clamp MG today and check residuals, DC if less than 200cc Carlos Eduardo Laura MD Jul 16, 2017 07:22
[2017-07-16 07:41] LABS: BICARBONATE 27.3 MEQ/L (21.0-32.0); CALCIUM-PROTEIN CORRECTED 8.1 MG/DL (8.5-10.1); MAGNESIUM 2.1 MG/DL (1.5-2.5); POTASSIUM 3.8 MEQ/L (3.5-5.1); TOTAL BILIRUBIN ADULT 0.3 MG/DL (0.2-1.0)
[2017-07-16] MEDS: LORATADINE 10 MG TAB PO SCH (08:33)
[2017-07-16] MEDS: amLODIPine BESYLATE 5 MG TAB PO SCH (08:33)
[2017-07-16] MEDS: DOCUSATE SODIUM 50 MG/SENNA 8.6 MG TAB PO SCH ×2 (08:33→21:52)
[2017-07-16] MEDS: MULTIVITAMINS/MINERALS THERAPEUTIC TAB PO SCH (08:34)
[2017-07-16] MEDS: ESCITALOPRAM OXALATE 10 MG TAB PO SCH (08:34)
[2017-07-16] MEDS: SODIUM CHLORIDE 0.9% FLUSH 5 ML FLUSH IVF SCH ×2 (08:35→21:52)
[2017-07-16 09:07] LABS: BANDS 9 % (0-6); MYELOCYTES 1 % (0-0); NEUTROPHIL # MANUAL DIFF 7.1 TH/MM3 (1.8-7.7); PLATELET ESTIMATE SMEAR NORMAL (NORMAL); PLATELET MORPHOLOGY NORMAL (NORMAL); POLYS (SEG NEUTROPHILS) 72 % (16-70); SCAN/DIFF FINAL DIFF MANUAL; WBC DIFF SAMPLE 100
--- NOTE | 2017-07-16 09:49 | HHI.PR ---
Subjective Remarks Patient is a 62-year-old male. He was having abdominal pain since Wednesday. The pain has been intermittent abdominal pain on the lower abdomen as 8 out of 10 that is been nonradiating. Patient denies any nausea vomiting or diarrhea or fevers or chest pain. States his pain improved with vomiting His primary care physician is in [place] is visiting Has been seen by surgery and is scheduled to go for a laparoscopic procedure today of his abdomen 07-15 patient had procedure yesterday. Seen by surgery. Discussed with patient and RN Still has NG tube in place Increase activity and ambulate Have discussed with surgery and Patient and RN and family 07-16 STILL HAS NGT POD #2 NO FLATUS NO SOB, NO CHEST PAIN, DW RN AND PT AND FAMILY Objective Vitals Vital Signs Date Time Temp Pulse Resp B/P (MAP) Pulse Ox O2 Delivery O2 Flow Rate FiO2 07/16/17 08:00 98.9 92 19 148/98 (115) 97 07/16/17 07:54 93 21 07/16/17 05:18 17 07/16/17 05:17 17 07/16/17 04:00 96.3 97 18 150/98 (115) 94 07/16/17 00:00 99.4 105 17 158/98 (118) 94 07/15/17 20:14 Nasal Cannula 2.00 07/15/17 20:00 98.8 100 18 152/94 (113) 94 07/15/17 20:00 18 07/15/17 19:59 18 07/15/17 19:57 18 07/15/17 16:00 96.9 93 20 164/91 (115) 96 07/15/17 14:00 18 07/15/17 11:45 98.2 91 18 146/97 (113) 96 I/O 07/15/17 07/15/17 07/15/17 07/16/17 07/16/17 07/16/17 07:00 15:00 23:00 07:00 15:00 23:00 Intake Total 840 ml 1000 ml 1363 ml 0 ml Output Total 730 ml 1250 ml 1050 ml Balance 110 ml -250 ml 313 ml 0 ml Intake Oral 240 ml 0 ml 0 ml 0 ml IV Total 600 ml 1000 ml 1363 ml Output Urine Total 430 ml 1000 ml 850 ml Gastric Drainage Total 300 ml 250 ml 200 ml # Bowel Movements 0 Result Diagram: 07/16/17 0513 07/16/17 0513 Other Results Laboratory Tests Test 07/13/17 23:55 07/14/17 00:30 07/15/17 06:12 07/16/17 05:13 White Blood Count 5.3 TH/MM3 6.9 TH/MM3 8.7 TH/MM3 Red Blood Count 4.62 MIL/MM3 4.03 MIL/MM3 3.79 MIL/MM3 Hemoglobin 14.7 GM/DL 13.2 GM/DL 12.3 GM/DL Hematocrit 43.4 % 38.3 % 36.4 % Mean Corpuscular Volume 93.9 FL 95.0 FL 96.1 FL Mean Corpuscular Hemoglobin 31.8 PG 32.6 PG 32.4 PG Mean Corpuscular Hemoglobin Concent 33.9 % 34.3 % 33.7 % Red Cell Distribution Width 13.1 % 13.4 % 13.4 % Platelet Count 288 TH/MM3 245 TH/MM3 220 TH/MM3 Mean Platelet Volume 7.3 FL 7.4 FL 7.3 FL Neutrophils (%) (Auto) 66.8 % 77.6 % 77.7 % Lymphocytes (%) (Auto) 15.5 % 10.3 % 10.0 % Monocytes (%) (Auto) 15.9 % 11.9 % 9.6 % Eosinophils (%) (Auto) 1.5 % 0.1 % 2.5 % Basophils (%) (Auto) 0.3 % 0.1 % 0.2 % Neutrophils # (Auto) 3.5 TH/MM3 5.3 TH/MM3 6.8 TH/MM3 Lymphocytes # (Auto) 0.8 TH/MM3 0.7 TH/MM3 0.9 TH/MM3 Monocytes # (Auto) 0.8 TH/MM3 0.8 TH/MM3 0.8 TH/MM3 Eosinophils # (Auto) 0.1 TH/MM3 0.0 TH/MM3 0.2 TH/MM3 Basophils # (Auto) 0.0 TH/MM3 0.0 TH/MM3 0.0 TH/MM3 CBC Comment AUTO DIFF DIFF FINAL AUTO DIFF Differential Total Cells Counted 100 100 Neutrophils % (Manual) 28 % 72 % Band Neutrophils % 37 % 9 % Lymphocytes % 18 % 15 % Monocytes % 13 % 3 % Neutrophils # (Manual) 3.7 TH/MM3 7.1 TH/MM3 Metamyelocytes 4 % Differential Comment FINAL DIFF MANUAL FINAL DIFF MANUAL Atypical Lymphocytes % Toxic Vacuolation PRESENT Dohle Bodies PRESENT Platelet Estimate NORMAL NORMAL Platelet Morphology Comment NORMAL NORMAL Red Cell Morphology Comment NORMAL NORMAL Blood Urea Nitrogen 38 MG/DL 27 MG/DL 19 MG/DL Creatinine 1.34 MG/DL 1.18 MG/DL 1.09 MG/DL Random Glucose 125 MG/DL 149 MG/DL 129 MG/DL Total Protein 7.9 GM/DL 5.9 GM/DL 5.8 GM/DL Albumin 3.5 GM/DL 2.4 GM/DL 2.4 GM/DL Calcium Level 8.8 MG/DL 7.6 MG/DL 7.4 MG/DL Alkaline Phosphatase 69 U/L 51 U/L 56 U/L Aspartate Amino Transf (AST/SGOT) 26 U/L 16 U/L 19 U/L Alanine Aminotransferase (ALT/SGPT) 34 U/L 29 U/L 27 U/L Total Bilirubin 0.5 MG/DL 0.3 MG/DL 0.3 MG/DL Sodium Level 138 MEQ/L 142 MEQ/L 144 MEQ/L Potassium Level 3.3 MEQ/L 4.1 MEQ/L 3.8 MEQ/L Chloride Level 99 MEQ/L 107 MEQ/L 110 MEQ/L Carbon Dioxide Level 29.2 MEQ/L 28.5 MEQ/L 27.3 MEQ/L Anion Gap 10 MEQ/L 7 MEQ/L 7 MEQ/L Estimat Glomerular Filtration Rate 54 ML/MIN 62 ML/MIN 68 ML/MIN Lipase 91 U/L Urine Color YELLOW Urine Turbidity CLEAR Urine pH 6.0 Urine Specific [place] 1.032 Urine Protein 100 mg/dL Urine Glucose (UA) NEG mg/dL Urine Ketones TRACE mg/dL Urine Occult Blood NEG Urine Nitrite NEG Urine Bilirubin NEG Urine Urobilinogen 2.0 MG/DL Urine Leukocyte Esterase NEG Urine RBC 1 /hpf Urine WBC LESS THAN 1 /hpf Urine Renal Epithelial Cells <1 /hpf Urine Mucus FEW /lpf Microscopic Urinalysis Comment CULT NOT INDICATED Phosphorus Level 2.2 MG/DL 1.1 MG/DL Magnesium Level 2.2 MG/DL 2.1 MG/DL Hemoglobin A1c 6.0 % Free Thyroxine 1.43 NG/DL Thyroid Stimulating Hormone 3rd Gen 1.170 uIU/ML Myelocytes 1 % Protein Corrected Calcium 8.1 MG/DL Imaging Last Impressions Abdomen X-Ray 07/14/17 0000 Signed Impressions: Service Date/Time: Friday, July 14, 2017 08:16 - CONCLUSION: 1. Abnormally dilated small bowel with air-fluid levels characteristic of a small bowel obstruction. 2. The level of obstruction is in the right lower quadrant where there is a 3 cm calcified lesion within the small bowel based on earlier CT. No pneumobilia is visualized to definitively diagnose gallstone ileus but that is a top consideration. Less likely a calcified small bowel mass or ingested foreign body could be the cause for the calcified lesion in the distal ileum. Zachary Villalpando MD Abdomen/Pelvis CT 07/13/17 2344 Signed Impressions: Service Date/Time: Friday, July 14, 2017 00:30 - CONCLUSION: 2 cm ossific density involving the terminal ileum with proximal dilatation characteristic of mechanical obstruction. Titi Blunt MD Objective Remarks GENERAL: Awake alert talkative and cooperative still has NG tube in place SKIN: Warm and dry. HEAD: Atraumatic. Normocephalic. EYES: Pupils equal and round. No scleral icterus. No injection or drainage. EOMI ENT: No nasal bleeding or discharge. Mucous membranes pink and moist. Tongue midline NGT NECK: Trachea midline. No JVD. Neck supple CARDIOVASCULAR: Regular rate and rhythm. S1 and S2 no S3 or S4 RESPIRATORY: No accessory muscle use. Clear to auscultation. Breath sounds equal bilaterally. GASTROINTESTINAL: Abdomen soft, non-tender, nondistended. Hepatic and splenic margins not palpable. Hypoactive bowel sounds -dressed MUSCULOSKELETAL: Extremities without clubbing, cyanosis, or edema. No obvious deformities. NEUROLOGICAL: Awake and alert. No obvious cranial nerve deficits. Motor grossly within normal limits. Five out of 5 muscle strength in the arms and legs. Normal speech. PSYCHIATRIC: Appropriate mood and affect; insight and judgment normal. Procedures ZANE WOOD M.D. DATE OF SURGERY: 07/14/2017 PREOPERATIVE DIAGNOSIS: 1. Small bowel obstruction secondary to calcified mass, right lower quadrant. 2. 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 POSTOPERATIVE DIAGNOSIS: 1. Small bowel obstruction secondary to calcified mass, right lower quadrant. 2. 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 PROCEDURE PERFORMED: Diagnostic laparoscopy. Exploratory laparotomy. Resection of small bowel diverticulum and calcified mass. SURGEON Zane Wood MD. MOLDER MACHINE Beverley. ANESTHESIA: General endotracheal anesthesia. COMPLICATIONS None. INDICATIONS FOR PROCEDURE: Mr. Raymundo is a pleasant 62-year-old gentleman who presented to the emergency department with a several-day history of nausea, vomiting, abdominal distension. He is actually down here on vacation, just arrived last night. He was seen and evaluated in the ER and had a CT scan. This showed a small bowel obstruction secondary to calcified mass in the right lower quadrant. There was a concern about possible gallstone ileus, although the patient had a normal-appearing gallbladder and did not have an inflammatory phlegmon or any new mobility in the right upper quadrant. It is felt this calcified mass was causing the obstruction. I recommended immediate operative intervention and him and his family were agreeable. INTRAOPERATIVE FINDINGS The patient had a small bowel diverticulum with a calcified mass within it. This was twisted and had adhesions in the right middle quadrant to the small bowel causing a closed loop obstruction. We were able to free the obstruction but open the patient in order to run the bowel in a retrograde fashion and decompress it and also resect the diverticulum and mass. DETAILS The patient was identified, brought to the operating room, placed supine on the operating room table. Adequate general endotracheal anesthesia was achieved the abdomen is prepped and draped in standard surgical fashion. Supraumbilical space was anesthetized with 0.25% Marcaine. Supraumbilical incision was made. Dissection was carried down to the subcutaneous tissues and midline fascia. Midline fascia was then incised sharply. A finger was then placed in the peritoneal cavity without difficulty. Blunt balloon trocar was inserted and the abdomen was insufflated to 15 mmHg using CO2 gas. Next two 5 mm trocars were placed in the upper midline under direct vision. A 30 degree laparoscope was used to inspect the right lower quadrant where the mass was identified. There was a closed loop obstruction with adhesions from the mass to the adjacent loops of small bowel and then another loop of bowel coming underneath this causing the obstruction. Using sharp dissection we were able to free up the internal hernia and the small bowel. The patient had a very large diverticulum with a calcified mass within it. Because the bowel was markedly distended proximally, I elected to perform a mini laparotomy and open the patient up in order to decompress the small bowel proximally and then also resect the diverticulum and mass with the stapler. The port sites were all connected in the upper midline and the fascia opened with electrocautery Bovie. An Erik wound protector was then placed. The small bowel was brought over to the operative site. There were some additional adhesions on the small bowel between the loops and these were taken down with sharp dissection. Once we did this, the small bowel was completely freed up. Attention was first directed to the proximal small bowel. The patient had a very distal small bowel obstruction and we therefore milked the small bowel back in a retrograde fashion retrieving approximately 2 liters of succus entericus. Once we did this we redirected our attention to the diverticulum. The large calcified mass was in the diverticulum. The patient had a generous small bowel mouth and we therefore placed a 75 CHACORTA across it and fired it. This did not compromise the small bowel as the small bowel was distended from the obstruction and there was generous lumen. The specimen was passed off and sent to pathology for analysis. Next the entire small bowel was run from the ileocecal valve retrograde to the ligament of Treitz. There were no other abnormalities noted. Mesentery was inspected and there was no bleeding. The staple site was inspected and it was widely patent. We are able to milk fluid easily passed it in both directions and it was very generous as the small bowel was markedly dilated. At this point the small bowel was returned to its anatomic position in the abdominal cavity. The stomach was palpated and the NG was in good position. We sucked back about two liters of succus entericus via the NG tube. The omentum was then placed over the small bowel and attention was directed to closure. Closure was accomplished using #1 looped PDS in continuous running fashion. Subcutaneous tissue was copiously irrigated and closed with 3-0 Vicryl. Skin was closed with skin stapling device. The patient tolerated the procedure well and was transferred to the PACU in stable condition. Zane Wood MD Medications and IVs Current Medications Morphine Sulfate (Morphine Inj) 4 mg ONCE ONCE IV PUSH Last administered on t 00:00; Start 07/13/17 at 23:45; Stop 07/13/17 at 23:46; Status DC Ondansetron HCl (Zofran Inj) 4 mg ONCE ONCE IVP Last administered on 23:59; Start 07/13/17 at 23:45; Stop 07/13/17 at 23:46; Status DC Sodium Chloride (NS Flush) 2 ml UNSCH PRN IV FLUSH FLUSH AFTER USING IV ACCESS ; Start 07/13/17 at 23:45; Status Cancel Sodium Chloride 1,000 ml @ 200 mls/hr Q5H IV Last administered on 07/14/17 05 :16; Start 07/14/17 at 02:18; Stop 07/14/17 at 20:12; Status DC Sodium Chloride (NS Flush) 2 ml UNSCH PRN IV FLUSH FLUSH AFTER USING IV ACCESS ; Start 07/14/17 at 02:30; Stop 07/14/17 at 20:05; Status DC Sodium Chloride (NS Flush) 2 ml BID IV FLUSH ; Start 07/14/17 at 09:00; Stop at 20:05; Status DC Ondansetron HCl (Zofran Inj) 4 mg Q6H PRN IVP NAUSEA OR VOMITING; Start at 02:30; Stop 07/14/17 at 08:55; Status DC Naloxone HCl (Narcan Inj) 0.4 mg UNSCH PRN IV PUSH SEE LABEL COMMENTS; Start 07/14/17 at 02:30; Stop 07/14/17 at 08:55; Status DC Potassium Chloride 100 ml @ 50 mls/hr Q2H IV Last administered on 07/14/17 05 :17; Start 07/14/17 at 02:30; Stop 07/14/17 at 06:29; Status DC Sodium Chloride (NS Flush) 2 ml UNSCH PRN IV FLUSH FLUSH AFTER USING IV ACCESS ; Start 07/14/17 at 08:30; Stop 07/14/17 at 08:55; Status DC Sodium Chloride (NS Flush) 2 ml BID IV FLUSH ; Start 07/14/17 at 09:00; Stop at 09:00; Status DC Acetaminophen (Tylenol) 650 mg Q4H PRN PO TEMP > 100.4; Start 07/14/17 at 08:30 Ondansetron HCl (Zofran Inj) 4 mg Q6H PRN IVP NAUSEA OR VOMITING; Start at 08:30 Prochlorperazine (Compazine Supp) 25 mg Q12H PRN RECTAL NAUSEA OR VOMITING; Start 07/14/17 at 08:30 Acetaminophen (Tylenol) 650 mg Q6H PRN PO PAIN SCALE 1 TO 2; Start 07/14/17 at 08:30 Oxycodone/ Acetaminophen (Percocet 5-325 Mg) 1 tab Q6H PRN PO PAIN SCALE 3 TO 5; Start 07/14/17 at 08:30 Oxycodone/ Acetaminophen (Percocet 10-325 Mg) 1 tab Q6H PRN PO PAIN SCALE 6 TO 10; Start 07/14/17 at 08:30 Morphine Sulfate (Morphine Inj) 2 mg Q3H PRN IV PUSH Pain 3-5; if unable to take PO; Start 07/14/17 at 08:30 Morphine Sulfate (Morphine Inj) 4 mg Q3H PRN IV PUSH Pain 6-10;if unable to take PO; Start 07/14/17 at 08:30 Naloxone HCl (Narcan Inj) 0.4 mg UNSCH PRN IV PUSH SEE LABEL COMMENTS; Start 07/14/17 at 08:30 Senna/Docusate Sodium (Berna-Colace) 1 tab BID PO Last administered on 08:33; Start 07/14/17 at 09:00 Magnesium Hydroxide (Milk Of Magnesia Liq) 30 ml Q12H PRN PO Mild constipation ; Start 07/14/17 at 08:30 Sennosides (Senokot) 17.2 mg Q12H PRN PO Moderate constipation; Start 07/14/17 at 08:30 Bisacodyl (Dulcolax Supp) 10 mg DAILY PRN RECTAL SEVERE CONSITIPATION; Start 07/14/17 at 08:30 Lactulose (Lactulose Liq) 30 ml DAILY PRN PO SEVERE CONSITIPATION; Start at 08:30 Bupivacaine HCl/ Epinephrine Bitart (Sensorcaine-Epinephrine 0.25% Inj) 50 ml STK-MED ONCE .ROUTE Last administered on 07/14/17 17:30; Start 07/14/17 at 16: 49; Stop 07/14/17 at 16:50; Status DC Metronidazole 100 ml @ As Directed STK-MED ONCE IV Last administered on 17:27; Start 07/14/17 at 17:18; Stop 07/14/17 at 17:19; Status DC Cefazolin Sodium/ Dextrose 50 ml @ As Directed STK-MED ONCE .ROUTE Last administered on 07/14/17 17:25; Start 07/14/17 at 17:18; Stop 07/14/17 at 17:19 ; Status DC Acetaminophen 100 ml @ As Directed STK-MED ONCE IV ; Start 07/14/17 at 18:42; Stop 07/14/17 at 18:43; Status DC Sugammadex Sodium (Bridion Inj) 400 mg STK-MED ONCE IV PUSH ; Start 07/14/17 at 18:42; Stop 07/14/17 at 18:43; Status DC Potassium Chloride/Dextrose/ Sod Cl 1,000 ml @ 125 mls/hr Q8H IV Last administered on 07/16/17 09:42; Start 07/14/17 at 19:15 IV Flush (NS Flush) 2 ml UNSCH PRN IVF FLUSH AFTER USING IV ACCESS; Start 07/14 at 19:15 IV Flush (NS Flush) 2 ml BID IVF ; Start 07/14/17 at 21:00 Ketorolac Tromethamine (Toradol Inj) 30 mg Q6H PRN IVP PAIN SCALE 1 TO 5; Start 07/14/17 at 19:15; Stop 07/19/17 at 19:14 Miscellaneous Information (Post-op Orders (for Pharmacy)) STAT ONCE XX ; Start 07/14/17 at 19:15; Stop 07/14/17 at 20:17; Status DC Miscellaneous Information 1 ONCE ONCE XX ; Start 07/14/17 at 19:15; Stop at 19:16; Status UNV Enoxaparin Sodium (Lovenox Inj) 30 mg Q24H SQ Last administered on 07/15/17 17 :27; Start 07/15/17 at 18:00 Morphine Sulfate (Morphine 1 Mg/ ml HUNTER GUIDE) 30 mg UNSCH IV Last administered on 19:57; Start 07/14/17 at 19:15 HUNTER GUIDE Dosage Infused (Pha) 1 Q8HR .XX Last administered on 07/16/17 05:17; Start 07/14/17 at 22:00 Pantoprazole Sodium (Protonix Inj) 40 mg Q24H IV PUSH Last administered on 07/15 19:59; Start 07/14/17 at 21:00 Miscellaneous Information ALL NURSING DEPARTME... UNSCH PRN .XX SEE LABEL COMMENTS; Start 07/14/17 at 19:15; Stop 07/15/17 at 19:14; Status DC Amlodipine Besylate (Norvasc) 5 mg DAILY PO Last administered on 07/16/17 08: 33; Start 07/16/17 at 09:00 Escitalopram Oxalate (Lexapro) 20 mg DAILY PO Last administered on 07/16/17 08:34; Start 07/16/17 at 09:00 Lisinopril (Prinivil) 20 mg HS PO Last administered on 07/15/17 20:56; Start 07/15/17 at 21:00 Loratadine (Claritin) 10 mg DAILY PO Last administered on 07/16/17 08:33; Start 07/16/17 at 09:00 Non-Formulary Medication 1 cap BID PO ; Start 07/15/17 at 21:00; Stop 07/15/17 at 21:00; Status DC Multivitamins/ Minerals Therapeutic (Theragran M Tab) 1 tab DAILY PO Last administered on 07/16/17 08:34; Start 07/16/17 at 09:00 Pravastatin Sodium (Pravachol) 40 mg HS PO Last administered on 07/15/17 20:56 ; Start 07/15/17 at 21:00 Urinary Catheter: No Vascular Central Line Catheter: No A/P Problem List: (1) Depression ICD Code: F32.9 - Major depressive disorder, single episode, unspecified (2) Hypokalemia ICD Code: E87.6 - Hypokalemia (3) Hyperlipidemia ICD Code: E78.5 - Hyperlipidemia, unspecified (4) SBO (small bowel obstruction) ICD Code: K56.609 - Unspecified intestinal obstruction, unspecified as to partial versus complete obstruction (5) Abdominal pain ICD Code: R10.9 - Unspecified abdominal pain (6) Hypertension ICD Code: I10 - Essential (primary) hypertension Assessment and Plan Abdominal pain with small bowel obstruction per CAT scan Had diagnostic laparoscopy by Dr. Zane Wood of surgery 11-8 for suspected obstructing gallstone in the small bowel 1. Small bowel obstruction secondary to calcified mass, right lower quadrant. 2. 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 Hypertension we'll restart meds once able to take oral medications Anxiety/DEPRESSION we'll restart medications once able to take oral medications Hyperlipidemia we'll restart medications once able to take by mouth medications Renal insufficiency/slight dehydration Monitor labs Pain control and antibiotics as needed Continue on IV fluids Diet per surgery Increase activity A.m. labs STILL IS ON LIMITED PO INTAKE STILL HAS NGT INCREASE ACTIVITY Discharge Planning Surgical clearance Alhaji Riley DO Jul 16, 2017 09:48
[2017-07-16] MEDS: cloNIDine HCL 0.1 MG TAB PO PRN ×2 (15:58→21:49)
[2017-07-16] MEDS: ENOXAPARIN SODIUM 30 MG/0.3 ML SYRINGE SQ SCH (18:09)
[2017-07-16] MEDS: MORPHINE SULFATE 30 MG/30 ML PCA IV SCH (21:47)
[2017-07-16] MEDS: PRAVASTATIN SOD 40 MG TAB PO SCH (21:51)
[2017-07-16] MEDS: LISINOPRIL 20 MG TAB PO SCH (21:51)
[2017-07-16] MEDS: PANTOPRAZOLE SODIUM 40 MG VIAL IV PUSH SCH (21:52)
[2017-07-17] VITALS (7 sets, daily range): BP systolic 146–192; BP diastolic 92–103; PULSE 92–101; RESP 17–22; TEMP 98.4–99.6; O2SAT 92–96
[2017-07-17 04:55] LABS: BICARBONATE 23.5 MEQ/L (21.0-32.0); CALCIUM-PROTEIN CORRECTED 8.2 MG/DL (8.5-10.1); MAGNESIUM 2.2 MG/DL (1.5-2.5); POTASSIUM 3.8 MEQ/L (3.5-5.1); TOTAL BILIRUBIN ADULT 0.3 MG/DL (0.2-1.0)
[2017-07-17] MEDS: PCA - TOTAL MG MORPHINE DELIVERED PER SHIFT SCH ×3 (05:02→20:21)
[2017-07-17] MEDS: D5-NS + KCL 20 MEQ INJ 1,000 ML IV SCH ×3 (05:02→19:15)
[2017-07-17 05:08] LABS: AUTOMATED NEUTROPHIL # 7.8 TH/MM3 (1.8-7.7); BASOPHIL % 0.3 % (0.0-2.0); EOSINOPHIL # 0.3 TH/MM3 (0-0.4); EOSINOPHIL % 2.8 % (0.0-4.0); HEMATOCRIT 35.8 % (39.0-51.0); LYMPH % 10.3 % (9.0-44.0); MEAN CELL VOLUME 95.9 FL (80.0-100.0); MEAN CORPUSCULAR HEMOGLOBIN 32.5 PG (27.0-34.0); MEAN CORPUSCULAR HGB CONC 33.9 % (32.0-36.0); MONO % 8.7 % (0.0-8.0); NEUT % 77.9 % (16.0-70.0); PLATELET COUNT 201 TH/MM3 (150-450); RED BLOOD COUNT 3.73 MIL/MM3 (4.50-5.90); RED CELL DISTRIBUTION WIDTH 13.1 % (11.6-17.2)
[2017-07-17 05:40] LABS: HEMO FLAGS AUTO DIFF
[2017-07-17] MEDS: LORATADINE 10 MG TAB PO SCH (08:18)
[2017-07-17] MEDS: ESCITALOPRAM OXALATE 10 MG TAB PO SCH (08:18)
[2017-07-17] MEDS: DOCUSATE SODIUM 50 MG/SENNA 8.6 MG TAB PO SCH ×2 (08:18→20:20)
[2017-07-17] MEDS: amLODIPine BESYLATE 5 MG TAB PO SCH (08:18)
[2017-07-17] MEDS: MULTIVITAMINS/MINERALS THERAPEUTIC TAB PO SCH (08:18)
[2017-07-17] MEDS: SODIUM CHLORIDE 0.9% FLUSH 5 ML FLUSH IVF SCH ×2 (08:18→20:21)
[2017-07-17 10:05] LABS: BANDS 19 % (0-6); METAMYELOCYTES 1 % (0-1); NEUTROPHIL # MANUAL DIFF 8.5 TH/MM3 (1.8-7.7); POLYS (SEG NEUTROPHILS) 65 % (16-70); WBC DIFF SAMPLE 100
[2017-07-17 10:06] LABS: PLATELET ESTIMATE SMEAR NORMAL (NORMAL); PLATELET MORPHOLOGY NORMAL (NORMAL); SCAN/DIFF FINAL DIFF MANUAL; TOXIC GRANULATION 1+ (NORMAL)
--- NOTE | 2017-07-17 10:07 | HHI.PR ---
Subjective Subjective Notes did not tolerate clears, ng back to sxn, +flatus Objective Vitals/I&O Vital Signs Date Time Temp Pulse Resp B/P (MAP) Pulse Ox O2 Delivery O2 Flow Rate FiO2 07/17/17 08:00 99.4 94 17 158/92 (114) 92 07/16/17 07:54 21 07/15/17 20:14 Nasal Cannula 2.00 Labs Laboratory Tests Test 07/17/17 03:45 White Blood Count 10.0 Red Blood Count 3.73 Hemoglobin 12.1 Hematocrit 35.8 Mean Corpuscular Volume 95.9 Mean Corpuscular Hemoglobin 32.5 Mean Corpuscular Hemoglobin Concent 33.9 Red Cell Distribution Width 13.1 Platelet Count 201 Mean Platelet Volume 7.1 Neutrophils (%) (Auto) 77.9 Lymphocytes (%) (Auto) 10.3 Monocytes (%) (Auto) 8.7 Eosinophils (%) (Auto) 2.8 Basophils (%) (Auto) 0.3 Neutrophils # (Auto) 7.8 Lymphocytes # (Auto) 1.0 Monocytes # (Auto) 0.9 Eosinophils # (Auto) 0.3 Basophils # (Auto) 0.0 CBC Comment AUTO DIFF Blood Urea Nitrogen 15 Creatinine 0.93 Random Glucose 120 Total Protein 5.7 Albumin 2.3 Calcium Level 7.4 Phosphorus Level 1.3 Magnesium Level 2.2 Alkaline Phosphatase 58 Aspartate Amino Transf (AST/SGOT) 18 Alanine Aminotransferase (ALT/SGPT) 27 Total Bilirubin 0.3 Sodium Level 144 Potassium Level 3.8 Chloride Level 113 Carbon Dioxide Level 23.5 Anion Gap 8 Estimat Glomerular Filtration Rate 82 Protein Corrected Calcium 8.2 Radiology Last 48 hours Impressions Abdomen X-Ray 07/14/17 0000 Signed Impressions: Service Date/Time: Friday, July 14, 2017 08:16 - CONCLUSION: 1. Abnormally dilated small bowel with air-fluid levels characteristic of a small bowel obstruction. 2. The level of obstruction is in the right lower quadrant where there is a 3 cm calcified lesion within the small bowel based on earlier CT. No pneumobilia is visualized to definitively diagnose gallstone ileus but that is a top consideration. Less likely a calcified small bowel mass or ingested foreign body could be the cause for the calcified lesion in the distal ileum. Zachary Villalpando MD Abdomen/Pelvis CT 07/13/17 [id number] Signed Impressions: Service Date/Time: Friday, July 14, 2017 00:30 - CONCLUSION: 2 cm ossific density involving the terminal ileum with proximal dilatation characteristic of mechanical obstruction. Titi Blunt MD Abdomen: Other (soft mild distension, dorina c/d/i) A/P Assessment and Plan Diagnostic laparoscopy. Exploratory laparotomy. Resection of small bowel diverticulum and calcified mass. POD 3 plan npo execpt ice and popsicles oob dorina to sxn pain control attempt ng clamp tomorrow Kwabena Cornelius MD Jul 17, 2017 10:07
[2017-07-17] MEDS: ONDANSETRON HCL 4 MG/2 ML VIAL IVP PRN ×2 (15:45→23:28)
[2017-07-17] MEDS: cloNIDine HCL 0.1 MG TAB PO PRN (15:45)
[2017-07-17] MEDS ORDERED: amLODIPine BESYLATE 5 MG TAB PO ONE (16:45)
[2017-07-17] MEDS ORDERED: SODIUM PHOSPHATE INJ 15 MMOL in SODIUM CHLORIDE 0.9% INJ 150 ML IV ONE (16:45)
[2017-07-17] MEDS ORDERED: CALCIUM CHLORIDE INJ 2 GM in SODIUM CHLORIDE 0.9% INJ 100 ML IV ONE (16:45)
[2017-07-17] MEDS: ENOXAPARIN SODIUM 30 MG/0.3 ML SYRINGE SQ SCH (16:46)
--- NOTE | 2017-07-17 17:10 | HHI.PR ---
Subjective Remarks Patient did not tolerate clear liquid diet - abdomen is distended and Ng tube was placed back to wall suction. (+) Flatus. low calcium low phosphorus Objective Vitals Vital Signs Date Time Temp Pulse Resp B/P (MAP) Pulse Ox O2 Delivery O2 Flow Rate FiO2 07/17/17 16:00 99.3 95 17 192/103 (132) 95 07/17/17 12:00 99.1 101 18 176/96 (122) 93 07/17/17 08:00 99.4 94 17 158/92 (114) 92 07/17/17 05:02 18 07/17/17 04:58 99.6 93 18 159/98 (118) 95 07/17/17 00:58 99.0 96 18 146/92 (110) 95 07/16/17 21:51 18 07/16/17 21:47 18 07/16/17 21:20 99.7 96 20 164/102 (122) 95 I/O 07/16/17 07/16/17 07/16/17 07/17/17 07/17/17 07/17/17 06:59 14:59 22:59 06:59 14:59 22:59 Intake Total 1363 ml 0 ml 720 ml 1000 ml Output Total 1050 ml 2 ml 1700 ml 100 ml Balance 313 ml -2 ml -980 ml -100 ml 1000 ml Intake Oral 0 ml 0 ml 720 ml IV Total 1363 ml 1000 ml Output Urine Total 850 ml 1100 ml Gastric Drainage Total 200 ml 2 ml 600 ml 100 ml # Voids 2 # Bowel Movements 0 Result Diagram: 07/17/17 0345 07/17/17 0345 Imaging Last Impressions Abdomen X-Ray 07/14/17 0000 Signed Impressions: Service Date/Time: Friday, July 14, 2017 08:16 - CONCLUSION: 1. Abnormally dilated small bowel with air-fluid levels characteristic of a small bowel obstruction. 2. The level of obstruction is in the right lower quadrant where there is a 3 cm calcified lesion within the small bowel based on earlier CT. No pneumobilia is visualized to definitively diagnose gallstone ileus but that is a top consideration. Less likely a calcified small bowel mass or ingested foreign body could be the cause for the calcified lesion in the distal ileum. Zachary Villalpando MD Abdomen/Pelvis CT 07/13/17 2344 Signed Impressions: Service Date/Time: Friday, July 14, 2017 00:30 - CONCLUSION: 2 cm ossific density involving the terminal ileum with proximal dilatation characteristic of mechanical obstruction. Titi Blunt MD Objective Remarks AAOx3, nad NG tube in place with brownish fluid material Lungs clear BL S1S2 RRR, no MRG Very distended abdomen with sluggish bowel sounds. No edema in lower extremities Procedures DATE OF SURGERY: 07/14/2017 PREOPERATIVE DIAGNOSIS: 1. Small bowel obstruction secondary to calcified mass, right lower quadrant. 2. 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 POSTOPERATIVE DIAGNOSIS: 1. Small bowel obstruction secondary to calcified mass, right lower quadrant. 2. 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 PROCEDURE PERFORMED: Diagnostic laparoscopy. Exploratory laparotomy. Resection of small bowel diverticulum and calcified mass. SURGEON Carlos Eduardo Laura MD. Medications and IVs Current Medications Medications (Trade) Dose Ordered Sig/Elliott Route Start Time Stop Time Status Last Admin (Tylenol) 650 mg Q4H PRN PO 07/14/17 08:30 (Zofran Inj) 4 mg Q6H PRN IVP 07/14/17 08:30 07/17/17 15:45 (Compazine Supp) 25 mg Q12H PRN RECTAL 07/14/17 08:30 (Tylenol) 650 mg Q6H PRN PO 07/14/17 08:30 (Percocet 5-325 Mg) 1 tab Q6H PRN PO 07/14/17 08:30 (Percocet 10-325 Mg) 1 tab Q6H PRN PO 07/14/17 08:30 (Morphine Inj) 2 mg Q3H PRN IV PUSH 07/14/17 08:30 (Morphine Inj) 4 mg Q3H PRN IV PUSH 07/14/17 08:30 (Narcan Inj) 0.4 mg UNSCH PRN IV PUSH 07/14/17 08:30 (Berna-Colace) 1 tab BID PO 07/14/17 09:00 07/17/17 08:18 (Milk Of Magnesia Liq) 30 ml Q12H PRN PO 07/14/17 08:30 (Senokot) 17.2 mg Q12H PRN PO 07/14/17 08:30 (Dulcolax Supp) 10 mg DAILY PRN RECTAL 07/14/17 08:30 (Lactulose Liq) 30 ml DAILY PRN PO 07/14/17 08:30 Potassium Chloride/Dextrose/ Sod Cl 1,000 ml @ 125 mls/hr Q8H IV 07/14/17 19:15 07/17/17 11:15 (NS Flush) 2 ml UNSCH PRN IVF 07/14/17 19:15 (NS Flush) 2 ml BID IVF 07/14/17 21:00 07/16/17 21:52 (Toradol Inj) 30 mg Q6H PRN IVP 07/14/17 19:15 07/19/17 19:14 (Lovenox Inj) 30 mg Q24H SQ 07/15/17 18:00 07/17/17 16:46 (Morphine 1 Mg/ ml [employer]) 30 mg UNSCH IV 07/14/17 19:15 07/16/17 21:47 [employer] Dosage Infused (Pha) 1 Q8HR .XX 07/14/17 22:00 07/17/17 12:38 (Protonix Inj) 40 mg Q24H IV PUSH 07/14/17 21:00 07/16/17 21:52 (Lexapro) 20 mg DAILY PO 07/16/17 09:00 07/17/17 08:18 (Prinivil) 20 mg HS PO 07/15/17 21:00 07/16/17 21:51 (Claritin) 10 mg DAILY PO 07/16/17 09:00 07/17/17 08:18 (Theragran M Tab) 1 tab DAILY PO 07/16/17 09:00 07/17/17 08:18 (Pravachol) 40 mg HS PO 07/15/17 21:00 07/16/17 21:51 (Catapres) 0.1 mg Q4H PRN PO 07/16/17 16:00 07/17/17 15:45 (Norvasc) 10 mg DAILY PO 07/18/17 09:00 Calcium Chloride 2 gm/Sodium Chloride 120 ml @ 120 mls/hr ONCE ONCE IV 07/17/17 16:45 07/17/17 17:44 Sodium Phosphate 15 mmol/Sodium Chloride 155 ml @ 38.75 mls/ hr ONCE ONCE IV 07/17/17 16:45 07/17/17 20:44 A/P Problem List: (1) SBO (small bowel obstruction) ICD Code: K56.609 - Unspecified intestinal obstruction, unspecified as to partial versus complete obstruction Plan: Surgery consulted. The patient is status post: Diagnostic laparoscopy. Exploratory laparotomy. Resection of small bowel diverticulum and calcified mass. Patient did not tolerate liquid diet. Back on NG suction and nothing by mouth. Management as per general surgery. Pain controlled. Continue pain medications as per general surgery recommendations. The patient currently on morphine sulfate. (2) Hyperlipidemia ICD Code: E78.5 - Hyperlipidemia, unspecified Plan: Continue statin. Follow-up fasting lipid profile as an outpatient. (3) Abdominal pain ICD Code: R10.9 - Unspecified abdominal pain Status: Acute Plan: Pain controlled. Continue management with Percocet and IV morphine sulfate. (4) Hypertension ICD Code: I10 - Essential (primary) hypertension Status: Acute Plan: Patient with very elevated blood pressure with a systolic blood pressure in the 190s systolic. I will increase amlodipine to 10 mg by mouth daily. I will give amlodipine 5 mg by mouth once since the patient had 5 mg of amlodipine in am. Continue with clonidine as needed. (5) Depression ICD Code: F32.9 - Major depressive disorder, single episode, unspecified Plan: Seems stable. Continue Lexapro. (6) Hypophosphatemia ICD Code: E83.39 - Other disorders of phosphorus metabolism Plan: Likely due to poor oral intake. Will RX IV Sodium Phosphate. Monitor Phosphorus levels. (7) Hypocalcemia ICD Code: E83.51 - Hypocalcemia Plan: Likely due to poor oral intake. Will Rx IV calcium chloride. Continue to monitor calcium levels. Assessment and Plan DVT prophylaxis: SCDs. Discharge Planning Continue to monitor in the medical floor. The patient still not tolerating oral diet Problem Qualifiers (1) Hyperlipidemia: Qualified Codes: E78.5 - Hyperlipidemia, unspecified (2) Abdominal pain: Qualified Codes: R10.84 - Generalized abdominal pain (3) Hypertension: Qualified Codes: I10 - Essential (primary) hypertension (4) Depression: Qualified Codes: F32.9 - Major depressive disorder, single episode, unspecified Bari Schroeder MD Jul 17, 2017 17:10
[2017-07-17] MEDS: PANTOPRAZOLE SODIUM 40 MG VIAL IV PUSH SCH (20:21)
[2017-07-17] MEDS: LISINOPRIL 20 MG TAB PO SCH (20:21)
[2017-07-17] MEDS: PRAVASTATIN SOD 40 MG TAB PO SCH (20:21)
[2017-07-18] VITALS (7 sets, daily range): BP systolic 130–166; BP diastolic 76–100; PULSE 85–90; RESP 20–22; TEMP 97.9–99.8; O2SAT 93–96
[2017-07-18 01:34] LABS: AUTOMATED NEUTROPHIL # 9.2 TH/MM3 (1.8-7.7); BASOPHIL % 0.2 % (0.0-2.0); EOSINOPHIL # 0.2 TH/MM3 (0-0.4); EOSINOPHIL % 2.1 % (0.0-4.0); HEMATOCRIT 34.6 % (39.0-51.0); HEMO FLAGS DIFF FINAL; LYMPHOCYTE # 0.9 TH/MM3 (1.0-4.8); MEAN CORPUSCULAR HEMOGLOBIN 31.5 PG (27.0-34.0); MEAN CORPUSCULAR HGB CONC 33.1 % (32.0-36.0); MONO % 6.4 % (0.0-8.0); NEUT % 83.3 % (16.0-70.0); PLATELET COUNT 206 TH/MM3 (150-450); RED BLOOD COUNT 3.64 MIL/MM3 (4.50-5.90); RED CELL DISTRIBUTION WIDTH 13.3 % (11.6-17.2)
[2017-07-18 01:38] LABS: APTT (PATIENT) 32.6 SEC (24.3-30.1); INTERNATIONAL NORMALIZED RATIO 1.1 RATIO; PROTHROMBIN TIME - PATIENT 11.8 SEC (9.8-11.6)
[2017-07-18 01:45] LABS: TOTAL BILIRUBIN ADULT 0.4 MG/DL (0.2-1.0)
[2017-07-18] MEDS: cloNIDine HCL 0.1 MG TAB PO PRN (03:00)
[2017-07-18] MEDS: D5-NS + KCL 20 MEQ INJ 1,000 ML IV SCH ×3 (05:04→20:00)
[2017-07-18] MEDS: PCA - TOTAL MG MORPHINE DELIVERED PER SHIFT SCH ×3 (05:04→20:00)
[2017-07-18 05:20] LABS: BASOPHIL % 0.2 % (0.0-2.0); EOSINOPHIL # 0.3 TH/MM3 (0-0.4); EOSINOPHIL % 2.5 % (0.0-4.0); HEMATOCRIT 34.1 % (39.0-51.0); HEMO FLAGS DIFF FINAL; LYMPH % 9.5 % (9.0-44.0); MEAN CELL VOLUME 95.4 FL (80.0-100.0); MEAN CORPUSCULAR HEMOGLOBIN 31.7 PG (27.0-34.0); MEAN CORPUSCULAR HGB CONC 33.3 % (32.0-36.0); MONO % 6.8 % (0.0-8.0); PLATELET COUNT 201 TH/MM3 (150-450); RED BLOOD COUNT 3.58 MIL/MM3 (4.50-5.90); RED CELL DISTRIBUTION WIDTH 13.2 % (11.6-17.2); WHITE BLOOD COUNT 11.1 TH/MM3 (4.0-11.0)
[2017-07-18 05:37] LABS: ANION GAP 9 MEQ/L (5-15); AST (GOT) 19 U/L (15-37); BLOOD UREA NITROGEN 13 MG/DL (7-18); CHLORIDE 110 MEQ/L (98-107); GLOMERULAR FILTRATION RATE 86 ML/MIN (>89); MAGNESIUM 1.9 MG/DL (1.5-2.5); POTASSIUM 3.6 MEQ/L (3.5-5.1); SODIUM (NA) 142 MEQ/L (136-145)
[2017-07-18 06:30] LABS: ALKALINE PHOSPHATASE 65 U/L (45-117); ALT (GPT) 26 U/L (12-78); TOTAL BILIRUBIN ADULT 0.5 MG/DL (0.2-1.0)
[2017-07-18] MEDS: amLODIPine BESYLATE 5 MG TAB PO SCH (08:46)
[2017-07-18] MEDS: MULTIVITAMINS/MINERALS THERAPEUTIC TAB PO SCH (08:46)
[2017-07-18] MEDS: DOCUSATE SODIUM 50 MG/SENNA 8.6 MG TAB PO SCH ×2 (08:46→19:59)
[2017-07-18] MEDS: ESCITALOPRAM OXALATE 10 MG TAB PO SCH (08:47)
[2017-07-18] MEDS: SODIUM CHLORIDE 0.9% FLUSH 5 ML FLUSH IVF SCH ×2 (08:47→20:00)
[2017-07-18] MEDS: LORATADINE 10 MG TAB PO SCH (08:47)
[2017-07-18] MEDS ORDERED: DOXAZOSIN MESYLATE 2 MG TAB PO ONE (09:15)
--- NOTE | 2017-07-18 12:02 | HHI.PR ---
Subjective Subjective Notes DAILY PROGRESS NOTE FOR SURGICAL ATTENDING, DR. JIMMY BARNETT sitting up in chair post flatus Objective Vitals/I&O Vital Signs Date Time Temp Pulse Resp B/P (MAP) Pulse Ox O2 Delivery O2 Flow Rate FiO2 07/18/17 08:00 99.0 87 20 162/100 (120) 96 07/17/17 17:50 21 07/15/17 20:14 Nasal Cannula 2.00 Labs Laboratory Tests Test 07/18/17 00:50 07/18/17 03:50 White Blood Count 11.0 11.1 Red Blood Count 3.64 3.58 Hemoglobin 11.5 11.3 Hematocrit 34.6 34.1 Mean Corpuscular Volume 95.0 95.4 Mean Corpuscular Hemoglobin 31.5 31.7 Mean Corpuscular Hemoglobin Concent 33.1 33.3 Red Cell Distribution Width 13.3 13.2 Platelet Count 206 201 Mean Platelet Volume 7.0 7.2 Neutrophils (%) (Auto) 83.3 81.0 Lymphocytes (%) (Auto) 8.0 9.5 Monocytes (%) (Auto) 6.4 6.8 Eosinophils (%) (Auto) 2.1 2.5 Basophils (%) (Auto) 0.2 0.2 Neutrophils # (Auto) 9.2 9.0 Lymphocytes # (Auto) 0.9 1.0 Monocytes # (Auto) 0.7 0.7 Eosinophils # (Auto) 0.2 0.3 Basophils # (Auto) 0.0 0.0 CBC Comment DIFF FINAL DIFF FINAL Differential Comment Prothrombin Time 11.8 Prothromb Time International Ratio 1.1 Activated Partial Thromboplast Time 32.6 Creatinine 0.84 0.89 Estimat Glomerular Filtration Rate 92 86 Total Bilirubin 0.4 0.5 Blood Urea Nitrogen 13 Random Glucose 101 Total Protein 5.8 Albumin 2.3 Calcium Level 8.2 Phosphorus Level 3.1 Magnesium Level 1.9 Alkaline Phosphatase 65 Aspartate Amino Transf (AST/SGOT) 19 Alanine Aminotransferase (ALT/SGPT) 26 Sodium Level 142 Potassium Level 3.6 Chloride Level 110 Carbon Dioxide Level 23.0 Anion Gap 9 Date/Time Source Procedure Growth Status 07/18/17 00:55 Blood Peripheral Aerobic Blood Culture Pending Received 07/18/17 00:55 Blood Peripheral Anaerobic Blood Culture Pending Received Radiology Last 48 hours Impressions Abdomen X-Ray 07/14/17 0000 Signed Impressions: Service Date/Time: Friday, July 14, 2017 08:16 - CONCLUSION: 1. Abnormally dilated small bowel with air-fluid levels characteristic of a small bowel obstruction. 2. The level of obstruction is in the right lower quadrant where there is a 3 cm calcified lesion within the small bowel based on earlier CT. No pneumobilia is visualized to definitively diagnose gallstone ileus but that is a top consideration. Less likely a calcified small bowel mass or ingested foreign body could be the cause for the calcified lesion in the distal ileum. Zachary Villalpando MD Abdomen/Pelvis CT 07/13/17 2344 Signed Impressions: Service Date/Time: Friday, July 14, 2017 00:30 - CONCLUSION: 2 cm ossific density involving the terminal ileum with proximal dilatation characteristic of mechanical obstruction. Titi Blunt MD Cardiovascular: Regular Lungs: Clear Abdomen: Non-distended, Post-op tenderness Extremities: Perfused A/P Problem List: (1) Postop check ICD Codes: Z09 - Encounter for follow-up examination after completed treatment for conditions other than malignant neoplasm Status: Acute (2) SBO (small bowel obstruction) ICD Codes: K56.609 - Unspecified intestinal obstruction, unspecified as to partial versus complete obstruction Status: Resolved (3) Hypocalcemia ICD Codes: E83.51 - Hypocalcemia Status: Chronic Assessment and Plan Diagnostic laparoscopy. Exploratory laparotomy. Resection of small bowel diverticulum and calcified mass. POD 4 plan oob dorina to sxn pain control attempt ng clamp today Attending Statement NOTE FOR SURGICAL ATTENDING, DR. JIMMY BARNETT I attest that I had a [id number] encounter with the patient on the same day, and personally performed and documented my assessment and findings in the medical record. The following services were provided during this hospital visit: Chart data review, vital sign assessments/reviewing monitor data Review of consultations notes if present. Medication orders/review and/or management Ordering and/or reviewing lab tests Ordering and/or interpreting/reviewing x-rays and/or diagnostic studies Care of the patient and discussion of the patient with the care team Documentation time To help prompt me to consider important information that might be impacting today's encounter and assessment, information from prior notes written by myself or my colleagues may have been "brought forward/copy and pasted" into today's note. Jimmy Barnett MD Jul 18, 2017 12:02
[2017-07-18] MEDS: ONDANSETRON HCL 4 MG/2 ML VIAL IVP PRN ×2 (15:45→22:17)
--- NOTE | 2017-07-18 16:35 | HHI.PR ---
Subjective Remarks patient c/o left arm swelling. again low grade fever today tmax 99.8 As per brother who is at bedside - patient coughing earlier. bp still elevated this am Objective Vitals Vital Signs Date Time Temp Pulse Resp B/P (MAP) Pulse Ox O2 Delivery O2 Flow Rate FiO2 07/18/17 12:00 99.8 90 20 130/76 (94) 93 07/18/17 08:00 99.0 87 20 162/100 (120) 96 07/18/17 04:00 97.9 88 22 166/100 (122) 95 07/18/17 00:00 98.8 85 22 160/92 (114) 95 07/17/17 20:21 20 07/17/17 20:00 98.4 92 22 166/99 (121) 96 07/17/17 17:50 95 21 I/O 07/17/17 07/17/17 07/17/17 07/18/17 07/18/17 07/18/17 07:00 15:00 23:00 07:00 15:00 23:00 Intake Total 1000 ml 0 ml Output Total 100 ml 1525 ml 570 ml Balance -100 ml 1000 ml -1525 ml -570 ml Intake Oral 0 ml IV Total 1000 ml Output Urine Total 1000 ml 550 ml Gastric Drainage Total 100 ml 525 ml 20 ml # Voids 2 2 # Bowel Movements 0 0 Result Diagram: 07/18/17 0350 07/18/17 0350 Imaging Last Impressions Abdomen X-Ray 07/14/17 0000 Signed Impressions: Service Date/Time: Friday, July 14, 2017 08:16 - CONCLUSION: 1. Abnormally dilated small bowel with air-fluid levels characteristic of a small bowel obstruction. 2. The level of obstruction is in the right lower quadrant where there is a 3 cm calcified lesion within the small bowel based on earlier CT. No pneumobilia is visualized to definitively diagnose gallstone ileus but that is a top consideration. Less likely a calcified small bowel mass or ingested foreign body could be the cause for the calcified lesion in the distal ileum. Zachary Villalpando MD Abdomen/Pelvis CT 07/13/17 4980 Signed Impressions: Service Date/Time: Friday, July 14, 2017 00:30 - CONCLUSION: 2 cm ossific density involving the terminal ileum with proximal dilatation characteristic of mechanical obstruction. Titi Blunt MD Objective Remarks AAOx3, nad NG tube in place with brownish fluid material Lungs clear BL S1S2 RRR, no MRG Very distended abdomen with sluggish bowel sounds improved from yesterday. No edema in lower extremities Left upper extremity edematous, no tenderness or erythema observed. Procedures DATE OF SURGERY: 07/14/2017 PREOPERATIVE DIAGNOSIS: 1. Small bowel obstruction secondary to calcified mass, right lower quadrant. 2. 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 POSTOPERATIVE DIAGNOSIS: 1. Small bowel obstruction secondary to calcified mass, right lower quadrant. 2. 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 PROCEDURE PERFORMED: Diagnostic laparoscopy. Exploratory laparotomy. Resection of small bowel diverticulum and calcified mass. SURGEON Carlos Eduardo Laura MD. Medications and IVs Current Medications Medications (Trade) Dose Ordered Sig/Elliott Route Start Time Stop Time Status Last Admin (Tylenol) 650 mg Q4H PRN PO 07/14/17 08:30 (Zofran Inj) 4 mg Q6H PRN IVP 07/14/17 08:30 07/18/17 15:45 (Compazine Supp) 25 mg Q12H PRN RECTAL 07/14/17 08:30 (Tylenol) 650 mg Q6H PRN PO 07/14/17 08:30 (Percocet 5-325 Mg) 1 tab Q6H PRN PO 07/14/17 08:30 (Percocet 10-325 Mg) 1 tab Q6H PRN PO 07/14/17 08:30 (Morphine Inj) 2 mg Q3H PRN IV PUSH 07/14/17 08:30 (Morphine Inj) 4 mg Q3H PRN IV PUSH 07/14/17 08:30 (Narcan Inj) 0.4 mg UNSCH PRN IV PUSH 07/14/17 08:30 (Berna-Colace) 1 tab BID PO 07/14/17 09:00 07/18/17 08:46 (Milk Of Magnesia Liq) 30 ml Q12H PRN PO 07/14/17 08:30 (Senokot) 17.2 mg Q12H PRN PO 07/14/17 08:30 (Dulcolax Supp) 10 mg DAILY PRN RECTAL 07/14/17 08:30 (Lactulose Liq) 30 ml DAILY PRN PO 07/14/17 08:30 Potassium Chloride/Dextrose/ Sod Cl 1,000 ml @ 125 mls/hr Q8H IV 07/14/17 19:15 07/18/17 05:04 (NS Flush) 2 ml UNSCH PRN IVF 07/14/17 19:15 (NS Flush) 2 ml BID IVF 07/14/17 21:00 07/16/17 21:52 (Toradol Inj) 30 mg Q6H PRN IVP 07/14/17 19:15 07/19/17 19:14 (Lovenox Inj) 30 mg Q24H SQ 07/15/17 18:00 07/17/17 16:46 (Morphine 1 Mg/ ml [employer]) 30 mg UNSCH IV 07/14/17 19:15 07/16/17 21:47 [employer] Dosage Infused (Pha) 1 Q8HR .XX 07/14/17 22:00 07/18/17 14:00 (Protonix Inj) 40 mg Q24H IV PUSH 07/14/17 21:00 07/17/17 20:21 (Lexapro) 20 mg DAILY PO 07/16/17 09:00 07/18/17 08:47 (Prinivil) 20 mg HS PO 07/15/17 21:00 07/17/17 20:21 (Claritin) 10 mg DAILY PO 07/16/17 09:00 07/18/17 08:47 (Theragran M Tab) 1 tab DAILY PO 07/16/17 09:00 07/18/17 08:46 (Pravachol) 40 mg HS PO 07/15/17 21:00 07/17/17 20:21 (Catapres) 0.1 mg Q4H PRN PO 07/16/17 16:00 07/18/17 03:00 (Norvasc) 10 mg DAILY PO 07/18/17 09:00 07/18/17 08:46 (Cardura) 2 mg DAILY PO 07/19/17 09:00 (Tylenol) 650 mg Q4H PRN PO 07/18/17 16:45 Urinary Catheter: No Vascular Central Line Catheter: No A/P Problem List: (1) SBO (small bowel obstruction) ICD Code: K56.609 - Unspecified intestinal obstruction, unspecified as to partial versus complete obstruction Status: Resolved Plan: Surgery consulted. The patient is status post: Diagnostic laparoscopy. Exploratory laparotomy. Resection of small bowel diverticulum and calcified mass. Patient did not tolerate liquid diet. Back on NG suction and nothing by mouth on 07/17. Pain controlled. Continue pain medications as per general surgery recommendations. The patient currently on morphine sulfate. 07/18 NG tube clamped today by Dr Barnett. (2) Hyperlipidemia ICD Code: E78.5 - Hyperlipidemia, unspecified Plan: Continue statin. Follow-up fasting lipid profile as an outpatient. (3) Abdominal pain ICD Code: R10.9 - Unspecified abdominal pain Status: Acute Plan: Pain controlled. Continue management with Percocet and IV morphine sulfate. (4) Hypertension ICD Code: I10 - Essential (primary) hypertension Status: Acute Plan: Patient started on amlodipine 5 mg po daily which was increased to 10 mg since bp still elevated. 07/18 BP this am still very elevated this am. Ordered doxazosin 2 mg po daily. (5) Depression ICD Code: F32.9 - Major depressive disorder, single episode, unspecified Plan: Seems stable. Continue Lexapro. (6) Hypophosphatemia ICD Code: E83.39 - Other disorders of phosphorus metabolism Plan: Likely due to poor oral intake. Will RX IV Sodium Phosphate. Monitor Phosphorus levels. 07/18 hypophosphatemia resolved with phosphorus level of 3.1. Continue to monitor levels. (7) Hypocalcemia ICD Code: E83.51 - Hypocalcemia Status: Chronic Plan: Likely due to poor oral intake. Will Rx IV calcium chloride. Continue to monitor calcium levels. (8) Low grade fever ICD Code: R50.9 - Fever, unspecified Plan: UA negative for infection. Blood cultures obtained and pending. Will follow up. Due to recent complaints of cough I will order a chest x-ray. WBC count increased to 11.1 from 10k - will continue to monitor CBC with differential. (9) Left upper extremity swelling ICD Code: M79.89 - Other specified soft tissue disorders Assessment and Plan DVT prophylaxis: SCDs. Discharge Planning Continue to monitor in the medical floor. The patient still not tolerating oral diet Problem Qualifiers (1) Hyperlipidemia: Qualified Codes: E78.5 - Hyperlipidemia, unspecified (2) Abdominal pain: Qualified Codes: R10.84 - Generalized abdominal pain (3) Hypertension: Qualified Codes: I10 - Essential (primary) hypertension (4) Depression: Qualified Codes: F32.9 - Major depressive disorder, single episode, unspecified Bari Schroeder MD Jul 18, 2017 16:35
[2017-07-18] MEDS ORDERED: ACETAMINOPHEN 325 MG TAB PO PRN (16:45)
[2017-07-18] MEDS: ENOXAPARIN SODIUM 30 MG/0.3 ML SYRINGE SQ SCH (17:01)
--- NOTE | 2017-07-18 18:29 | RADRPT ---
EXAM DATE/TIME: 07/18/2017 18:12 [facility] COMPARISON: No previous studies available for comparison. INDICATIONS : Fever MEDICAL HISTORY : Hypercholesterolemia. Hypertension SURGICAL HISTORY : None. ENCOUNTER: Initial ACUITY: 1 day PAIN SCORE: 0/10 LOCATION: Bilateral chest FINDINGS: PA and lateral views of the chest demonstrates hypoinflation with crowding of the bronchopulmonary ma rkings. No confluent infiltrate or effusion. To low lung volumes, heart size is normal. Nasogastric t ube traverses the GE junction with the tip in the gastric body. Osseous structures are intact with so me degenerative spurring of the thoracolumbar spine. CONCLUSION: Hypoinflation. No acute cardiopulmonary process Candelario Lozano MD on July 18, 2017 at 18:25 Board Certified Radiologist. This report was verified electronically.
--- NOTE | 2017-07-18 19:09 | RADRPT ---
EXAM DATE/TIME: 07/18/2017 18:28 [facility] COMPARISON: No previous studies available for comparison. INDICATIONS : Left arm swelling. MEDICAL HISTORY : Hypercholesterolemia. Hypertension. Abdominal pain. Nausea. Vomiting. SURGICAL HISTORY : None. ENCOUNTER: Initial ACUITY: 1 day PAIN SCORE: 3/10 LOCATION: Left arm. FINDINGS: There is spontaneous flow documented in the brachial, basilic, cephalic, axillary, and subclavian vei ns. The vessels are compressible and augmentation response is documented. No filling defects are se en. The flow is phasic with respiration. Direction of flow in the jugular vein is caudal. CONCLUSION: Negative exam. No sonographic or Doppler findings of DVT. Candelario Lozano MD on July 18, 2017 at 19:06 Board Certified Radiologist. This report was verified electronically.
[2017-07-18] MEDS: PRAVASTATIN SOD 40 MG TAB PO SCH (19:59)
[2017-07-18] MEDS: LISINOPRIL 20 MG TAB PO SCH (19:59)
[2017-07-18] MEDS: PANTOPRAZOLE SODIUM 40 MG VIAL IV PUSH SCH (19:59)
[2017-07-19] VITALS: BP 150/86; PULSE 98; RESP 22; TEMP 98.5; O2SAT 94
[2017-07-19] MEDS: D5-NS + KCL 20 MEQ INJ 1,000 ML IV SCH (03:15)
[2017-07-19 04:00] VITALS: BP 155/92; PULSE 95; RESP 20; TEMP 98.3; O2SAT 97
[2017-07-19] MEDS: PCA - TOTAL MG MORPHINE DELIVERED PER SHIFT SCH (05:20)
[2017-07-19 06:58] LABS: AUTOMATED NEUTROPHIL # 8.6 TH/MM3 (1.8-7.7); BASOPHIL % 0.1 % (0.0-2.0); EOSINOPHIL # 0.2 TH/MM3 (0-0.4); EOSINOPHIL % 2.3 % (0.0-4.0); HEMATOCRIT 32.3 % (39.0-51.0); HEMO FLAGS DIFF FINAL; LYMPH % 7.2 % (9.0-44.0); LYMPHOCYTE # 0.7 TH/MM3 (1.0-4.8); MEAN CELL VOLUME 94.3 FL (80.0-100.0); MEAN CORPUSCULAR HEMOGLOBIN 32.8 PG (27.0-34.0); MEAN CORPUSCULAR HGB CONC 34.8 % (32.0-36.0); MONO % 4.2 % (0.0-8.0); NEUT % 86.2 % (16.0-70.0); PLATELET COUNT 176 TH/MM3 (150-450); RED BLOOD COUNT 3.43 MIL/MM3 (4.50-5.90)
[2017-07-19 07:22] LABS: BICARBONATE 25.4 MEQ/L (21.0-32.0); POTASSIUM 3.5 MEQ/L (3.5-5.1)
[2017-07-19 08:00] VITALS: BP 143/88; PULSE 85; RESP 18; TEMP 97.7; O2SAT 96
--- NOTE | 2017-07-19 08:21 | HHI.PR ---
Subjective Subjective Notes feeling better, had 3 BM last night. NG fell out, no N/V Objective Vitals/I&O Vital Signs Date Time Temp Pulse Resp B/P (MAP) Pulse Ox O2 Delivery O2 Flow Rate FiO2 07/19/17 05:20 20 07/19/17 04:00 98.3 95 155/92 (113) 97 07/17/17 17:50 21 07/15/17 20:14 Nasal Cannula 2.00 Labs Laboratory Tests Test 07/19/17 05:41 White Blood Count 10.0 Red Blood Count 3.43 Hemoglobin 11.2 Hematocrit 32.3 Mean Corpuscular Volume 94.3 Mean Corpuscular Hemoglobin 32.8 Mean Corpuscular Hemoglobin Concent 34.8 Red Cell Distribution Width 13.0 Platelet Count 176 Mean Platelet Volume 7.2 Neutrophils (%) (Auto) 86.2 Lymphocytes (%) (Auto) 7.2 Monocytes (%) (Auto) 4.2 Eosinophils (%) (Auto) 2.3 Basophils (%) (Auto) 0.1 Neutrophils # (Auto) 8.6 Lymphocytes # (Auto) 0.7 Monocytes # (Auto) 0.4 Eosinophils # (Auto) 0.2 Basophils # (Auto) 0.0 CBC Comment DIFF FINAL Differential Comment Blood Urea Nitrogen 13 Creatinine 0.89 Random Glucose 113 Calcium Level 7.8 Sodium Level 142 Potassium Level 3.5 Chloride Level 109 Carbon Dioxide Level 25.4 Anion Gap 8 Estimat Glomerular Filtration Rate 86 Date/Time Source Procedure Growth Status 07/18/17 00:55 Blood Peripheral Aerobic Blood Culture Pending Received 07/18/17 00:55 Blood Peripheral Anaerobic Blood Culture Pending Received Radiology Last 48 hours Impressions Abdomen X-Ray 07/14/17 0000 Signed Impressions: Service Date/Time: Friday, July 14, 2017 08:16 - CONCLUSION: 1. Abnormally dilated small bowel with air-fluid levels characteristic of a small bowel obstruction. 2. The level of obstruction is in the right lower quadrant where there is a 3 cm calcified lesion within the small bowel based on earlier CT. No pneumobilia is visualized to definitively diagnose gallstone ileus but that is a top consideration. Less likely a calcified small bowel mass or ingested foreign body could be the cause for the calcified lesion in the distal ileum. Zachary Villalpando MD Abdomen/Pelvis CT 07/13/17 2344 Signed Impressions: Service Date/Time: Friday, July 14, 2017 00:30 - CONCLUSION: 2 cm ossific density involving the terminal ileum with proximal dilatation characteristic of mechanical obstruction. Titi Blunt MD Cardiovascular: Regular Lungs: Clear Abdomen: Post-op tenderness, BS normal Wound Wound : Wound Location: Abdomen Appearance: Clean & Dry A/P Problem List: (1) Postop check ICD Codes: Z09 - Encounter for follow-up examination after completed treatment for conditions other than malignant neoplasm Status: Acute (2) SBO (small bowel obstruction) ICD Codes: K56.609 - Unspecified intestinal obstruction, unspecified as to partial versus complete obstruction Status: Resolved (3) Hypocalcemia ICD Codes: E83.51 - Hypocalcemia Status: Chronic Assessment and Plan POD5 exp lap, sbo, resection of SB diverticulum advance diet DC IVF and [employer] Carlos Eduardo Laura MD Jul 19, 2017 08:21
[2017-07-19] MEDS: DOCUSATE SODIUM 50 MG/SENNA 8.6 MG TAB PO SCH ×2 (09:00→20:02)
[2017-07-19] MEDS: amLODIPine BESYLATE 5 MG TAB PO SCH (10:12)
[2017-07-19] MEDS: MULTIVITAMINS/MINERALS THERAPEUTIC TAB PO SCH (10:12)
[2017-07-19] MEDS: ESCITALOPRAM OXALATE 10 MG TAB PO SCH (10:12)
[2017-07-19] MEDS: LORATADINE 10 MG TAB PO SCH (10:13)
[2017-07-19] MEDS: DOXAZOSIN MESYLATE 2 MG TAB PO SCH (10:13)
[2017-07-19 12:00] VITALS: BP 142/82; PULSE 92; RESP 17; TEMP 99; O2SAT 96
[2017-07-19 16:00] VITALS: BP 130/85; PULSE 83; RESP 16; TEMP 98.6; O2SAT 95
--- NOTE | 2017-07-19 16:26 | HHI.PR ---
Subjective Remarks patient is asleep as per who is at bedside patient has tolerated diet no nausea or vomiting reported. No fevers since yesterday at noon Objective Vitals Vital Signs Date Time Temp Pulse Resp B/P (MAP) Pulse Ox O2 Delivery O2 Flow Rate FiO2 07/19/17 12:00 99.0 92 17 142/82 (102) 96 07/19/17 08:00 97.7 85 18 143/88 (106) 96 07/19/17 05:20 20 07/19/17 04:00 98.3 95 20 155/92 (113) 97 07/19/17 00:00 98.5 98 22 150/86 (107) 94 07/18/17 20:00 90 07/18/17 20:00 20 07/18/17 20:00 98.9 87 22 133/89 (104) 95 07/18/17 18:56 96 I/O 07/18/17 07/18/17 07/18/17 07/19/17 07/19/17 07/19/17 07:00 15:00 23:00 07:00 15:00 23:00 Intake Total 0 ml 210 ml 240 ml Output Total 570 ml 100 ml 200 ml Balance -570 ml 110 ml 40 ml Intake Oral 0 ml 210 ml 240 ml Output Urine Total 550 ml 200 ml Gastric Drainage Total 20 ml 100 ml # Voids 4 2 # Bowel Movements 0 0 3 Result Diagram: 07/19/17 0541 07/19/17 0541 Imaging Last Impressions Upper Extremity Ultrasound 07/18/17 0000 Signed Impressions: Service Date/Time: Tuesday, July 18, 2017 18:28 - CONCLUSION: Negative exam. No sonographic or Doppler findings of DVT. Candelario Lozano MD Chest X-Ray 07/18/17 0000 Signed Impressions: Service Date/Time: Tuesday, July 18, 2017 18:12 - CONCLUSION: Hypoinflation. No acute cardiopulmonary process Candelario Lozano MD Abdomen X-Ray 07/14/17 0000 Signed Impressions: Service Date/Time: Friday, July 14, 2017 08:16 - CONCLUSION: 1. Abnormally dilated small bowel with air-fluid levels characteristic of a small bowel obstruction. 2. The level of obstruction is in the right lower quadrant where there is a 3 cm calcified lesion within the small bowel based on earlier CT. No pneumobilia is visualized to definitively diagnose gallstone ileus but that is a top consideration. Less likely a calcified small bowel mass or ingested foreign body could be the cause for the calcified lesion in the distal ileum. Zachary Villalpando MD Abdomen/Pelvis CT 07/13/17 2344 Signed Impressions: Service Date/Time: Friday, July 14, 2017 00:30 - CONCLUSION: 2 cm ossific density involving the terminal ileum with proximal dilatation characteristic of mechanical obstruction. Titi Blunt MD Objective Remarks AAOx3, nad NG tube in place with brownish fluid material Lungs clear BL S1S2 RRR, no MRG Very distended abdomen with sluggish bowel sounds improved from yesterday. No edema in lower extremities Left upper extremity edematous, no tenderness or erythema observed. Procedures DATE OF SURGERY: 07/14/2017 PREOPERATIVE DIAGNOSIS: 1. Small bowel obstruction secondary to calcified mass, right lower quadrant. 2. 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 POSTOPERATIVE DIAGNOSIS: 1. Small bowel obstruction secondary to calcified mass, right lower quadrant. 2. 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 PROCEDURE PERFORMED: Diagnostic laparoscopy. Exploratory laparotomy. Resection of small bowel diverticulum and calcified mass. SURGEON Carlos Eduardo Laura MD. Medications and IVs Current Medications Medications (Trade) Dose Ordered Sig/Elliott Route Start Time Stop Time Status Last Admin (Tylenol) 650 mg Q4H PRN PO 07/14/17 08:30 (Zofran Inj) 4 mg Q6H PRN IVP 07/14/17 08:30 07/18/17 22:17 (Compazine Supp) 25 mg Q12H PRN RECTAL 07/14/17 08:30 (Tylenol) 650 mg Q6H PRN PO 07/14/17 08:30 (Percocet 5-325 Mg) 1 tab Q6H PRN PO 07/14/17 08:30 (Percocet 10-325 Mg) 1 tab Q6H PRN PO 07/14/17 08:30 07/19/17 10:17 (Morphine Inj) 2 mg Q3H PRN IV PUSH 07/14/17 08:30 (Morphine Inj) 4 mg Q3H PRN IV PUSH 07/14/17 08:30 (Narcan Inj) 0.4 mg UNSCH PRN IV PUSH 07/14/17 08:30 (Berna-Colace) 1 tab BID PO 07/14/17 09:00 07/18/17 19:59 (Milk Of Magnesia Liq) 30 ml Q12H PRN PO 07/14/17 08:30 (Senokot) 17.2 mg Q12H PRN PO 07/14/17 08:30 (Dulcolax Supp) 10 mg DAILY PRN RECTAL 07/14/17 08:30 (Lactulose Liq) 30 ml DAILY PRN PO 07/14/17 08:30 (Lovenox Inj) 30 mg Q24H SQ 07/15/17 18:00 07/18/17 17:01 (Protonix Inj) 40 mg Q24H IV PUSH 07/14/17 21:00 07/18/17 19:59 (Lexapro) 20 mg DAILY PO 07/16/17 09:00 07/19/17 10:12 (Prinivil) 20 mg HS PO 07/15/17 21:00 07/18/17 19:59 (Claritin) 10 mg DAILY PO 07/16/17 09:00 07/19/17 10:13 (Theragran M Tab) 1 tab DAILY PO 07/16/17 09:00 07/19/17 10:12 (Pravachol) 40 mg HS PO 07/15/17 21:00 07/18/17 19:59 (Catapres) 0.1 mg Q4H PRN PO 07/16/17 16:00 07/18/17 03:00 (Norvasc) 10 mg DAILY PO 07/18/17 09:00 07/19/17 10:12 (Cardura) 2 mg DAILY PO 07/19/17 09:00 07/19/17 10:13 (Tylenol) 650 mg Q4H PRN PO 07/18/17 16:45 07/18/17 17:01 Urinary Catheter: No Vascular Central Line Catheter: No A/P Problem List: (1) SBO (small bowel obstruction) ICD Code: K56.609 - Unspecified intestinal obstruction, unspecified as to partial versus complete obstruction Status: Resolved (2) Hyperlipidemia ICD Code: E78.5 - Hyperlipidemia, unspecified (3) Abdominal pain ICD Code: R10.9 - Unspecified abdominal pain Status: Acute (4) Hypertension ICD Code: I10 - Essential (primary) hypertension Status: Acute (5) Depression ICD Code: F32.9 - Major depressive disorder, single episode, unspecified (6) Hypophosphatemia ICD Code: E83.39 - Other disorders of phosphorus metabolism (7) Hypocalcemia ICD Code: E83.51 - Hypocalcemia Status: Chronic (8) Low grade fever ICD Code: R50.9 - Fever, unspecified (9) Left upper extremity swelling ICD Code: M79.89 - Other specified soft tissue disorders Assessment and Plan (1) SBO (small bowel obstruction) Plan: Surgery consulted. The patient is status post: Diagnostic laparoscopy. Exploratory laparotomy. Resection of small bowel diverticulum and calcified mass. Patient did not tolerate liquid diet. Back on NG suction and nothing by mouth on 07/17. Pain controlled. Continue pain medications as per general surgery recommendations. The patient currently on morphine sulfate. 07/18 NG tube clamped today by Dr Barnett. 07/19 NG tube removed, patient tolerating diet. Continue Management as per General surgery. (2) Hyperlipidemia Plan: Continue statin. Follow-up fasting lipid profile as an outpatient. (3) Abdominal pain Plan: Pain controlled. Continue management with Percocet and IV morphine sulfate. 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 07/18 BP this am still very elevated this am. Ordered doxazosin 2 mg po daily. 07/19 BP much improved after Cardura. Continue amlodipine and Cardura. (5) Depression Plan: Seems stable. Continue Lexapro. (6) Hypophosphatemia Plan: Likely due to poor oral intake. Will RX IV Sodium Phosphate. Monitor Phosphorus levels. 07/18 hypophosphatemia resolved with phosphorus level of 3.1. Continue to monitor levels. (7) Hypocalcemia Plan: Likely due to poor oral intake. Sp replacement with IV Calcium Chloride. Continue to monitor levels. (8) Low grade fever Plan: UA negative for infection. Blood cultures obtained and pending. Will follow up. Due to recent complaints of cough I will order a chest x-ray. WBC count increased to 11.1 from 10k - will continue to monitor CBC with differential. 07/19 CXR did not show any acute disease or infiltrates. (9) Left upper extremity swelling Plan: Venous Doppler of the upper extremities ordered and negative for DVT. DVT prophylaxis: SCDs. Discharge Planning Continue to monitor in the medical floor. Pending general surgery clearance. Patient disposition is home. Problem Qualifiers (1) Hyperlipidemia: Qualified Codes: E78.5 - Hyperlipidemia, unspecified (2) Abdominal pain: Qualified Codes: R10.84 - Generalized abdominal pain (3) Hypertension: Qualified Codes: I10 - Essential (primary) hypertension (4) Depression: Qualified Codes: F32.9 - Major depressive disorder, single episode, unspecified Bari Schroeder MD Jul 19, 2017 16:26
[2017-07-19] MEDS: ENOXAPARIN SODIUM 30 MG/0.3 ML SYRINGE SQ SCH (18:00)
[2017-07-19 20:00] VITALS: BP 142/77; PULSE 98; RESP 18; TEMP 97.6; O2SAT 97
[2017-07-19] MEDS: PANTOPRAZOLE SODIUM 40 MG VIAL IV PUSH SCH (20:07)
[2017-07-19] MEDS: PRAVASTATIN SOD 40 MG TAB PO SCH (20:10)
[2017-07-19] MEDS: LISINOPRIL 20 MG TAB PO SCH (20:11)
[2017-07-20] VITALS: BP 138/84; PULSE 94; RESP 17; TEMP 99.4; O2SAT 95
[2017-07-20 07:28] LABS: AUTOMATED NEUTROPHIL # 7.2 TH/MM3 (1.8-7.7); BASOPHIL % 0.2 % (0.0-2.0); EOSINOPHIL # 0.3 TH/MM3 (0-0.4); EOSINOPHIL % 3.3 % (0.0-4.0); HEMATOCRIT 31.5 % (39.0-51.0); HEMO FLAGS DIFF FINAL; LYMPH % 10.5 % (9.0-44.0); LYMPHOCYTE # 0.9 TH/MM3 (1.0-4.8); MEAN CELL VOLUME 93.7 FL (80.0-100.0); MEAN CORPUSCULAR HEMOGLOBIN 32.6 PG (27.0-34.0); MEAN CORPUSCULAR HGB CONC 34.8 % (32.0-36.0); MONO % 4.8 % (0.0-8.0); NEUT % 81.2 % (16.0-70.0); PLATELET COUNT 181 TH/MM3 (150-450); RED BLOOD COUNT 3.37 MIL/MM3 (4.50-5.90); WHITE BLOOD COUNT 8.9 TH/MM3 (4.0-11.0)
[2017-07-20 07:51] LABS: ALT (GPT) 31 U/L (12-78); ANION GAP 7 MEQ/L (5-15); AST (GOT) 18 U/L (15-37); BLOOD UREA NITROGEN 12 MG/DL (7-18); CHLORIDE 108 MEQ/L (98-107); GLOMERULAR FILTRATION RATE 83 ML/MIN (>89); MAGNESIUM 1.9 MG/DL (1.5-2.5); POTASSIUM 3.5 MEQ/L (3.5-5.1); SODIUM (NA) 141 MEQ/L (136-145)
[2017-07-20 07:54] LABS: ALKALINE PHOSPHATASE 75 U/L (45-117); TOTAL BILIRUBIN ADULT 0.3 MG/DL (0.2-1.0)
[2017-07-20 08:00] VITALS: BP 142/97; PULSE 88; RESP 18; TEMP 98.3; O2SAT 96
--- NOTE | 2017-07-20 08:49 | HHI.PR ---
Subjective Subjective Notes Dressed; sitting on the side of the bed No pain Objective Vitals/I&O Vital Signs Date Time Temp Pulse Resp B/P (MAP) Pulse Ox O2 Delivery O2 Flow Rate FiO2 07/20/17 08:00 98.3 88 18 142/97 (112) 96 07/17/17 17:50 21 Labs Laboratory Tests Test 07/20/17 06:07 07/20/17 06:57 White Blood Count 8.9 Red Blood Count 3.37 Hemoglobin 11.0 Hematocrit 31.5 Mean Corpuscular Volume 93.7 Mean Corpuscular Hemoglobin 32.6 Mean Corpuscular Hemoglobin Concent 34.8 Red Cell Distribution Width 13.0 Platelet Count 181 Mean Platelet Volume 7.3 Neutrophils (%) (Auto) 81.2 Lymphocytes (%) (Auto) 10.5 Monocytes (%) (Auto) 4.8 Eosinophils (%) (Auto) 3.3 Basophils (%) (Auto) 0.2 Neutrophils # (Auto) 7.2 Lymphocytes # (Auto) 0.9 Monocytes # (Auto) 0.4 Eosinophils # (Auto) 0.3 Basophils # (Auto) 0.0 CBC Comment DIFF FINAL Differential Comment Blood Urea Nitrogen 12 Creatinine 0.92 Random Glucose 103 Total Protein 5.6 Albumin 2.2 Calcium Level 7.7 Phosphorus Level 3.0 Magnesium Level 1.9 Alkaline Phosphatase 75 Aspartate Amino Transf (AST/SGOT) 18 Alanine Aminotransferase (ALT/SGPT) 31 Total Bilirubin 0.3 Sodium Level 141 Potassium Level 3.5 Chloride Level 108 Carbon Dioxide Level 26.0 Anion Gap 7 Estimat Glomerular Filtration Rate 83 Date/Time Source Procedure Growth Status 07/18/17 00:55 Blood Peripheral Aerobic Blood Culture - Preliminary NO GROWTH IN 1 DAY Resulted 07/18/17 00:55 Blood Peripheral Anaerobic Blood Culture - Preliminary NO GROWTH IN 1 DAY Resulted Radiology Last 48 hours Impressions Abdomen X-Ray 07/14/17 0000 Signed Impressions: Service Date/Time: Friday, July 14, 2017 08:16 - CONCLUSION: 1. Abnormally dilated small bowel with air-fluid levels characteristic of a small bowel obstruction. 2. The level of obstruction is in the right lower quadrant where there is a 3 cm calcified lesion within the small bowel based on earlier CT. No pneumobilia is visualized to definitively diagnose gallstone ileus but that is a top consideration. Less likely a calcified small bowel mass or ingested foreign body could be the cause for the calcified lesion in the distal ileum. Zachary Villalpando MD Abdomen/Pelvis CT 07/13/17 6374 Signed Impressions: Service Date/Time: Friday, July 14, 2017 00:30 - CONCLUSION: 2 cm ossific density involving the terminal ileum with proximal dilatation characteristic of mechanical obstruction. Titi Blunt MD Cardiovascular: Regular Lungs: Clear Abdomen: Other (midline incision with carlos a; abdomen soft non tender ) Extremities: No edema A/P Problem List: (1) Postop check ICD Codes: Z09 - Encounter for follow-up examination after completed treatment for conditions other than malignant neoplasm Status: Acute (2) SBO (small bowel obstruction) ICD Codes: K56.609 - Unspecified intestinal obstruction, unspecified as to partial versus complete obstruction Status: Resolved (3) Hypocalcemia ICD Codes: E83.51 - Hypocalcemia Status: Chronic Assessment and Plan 62 year old male POD6 dx lap; ex lap; resection of small bowel diverticulum and calcified mass -Regular diet -+BM -Okay to DC from GS standpoint -Follow up with Dr. Laura on [place] Jul 20, 2017 08:49
[2017-07-20] MEDS: DOCUSATE SODIUM 50 MG/SENNA 8.6 MG TAB PO SCH (09:00)
[2017-07-20] MEDS: DOXAZOSIN MESYLATE 2 MG TAB PO SCH (09:19)
[2017-07-20] MEDS: ESCITALOPRAM OXALATE 10 MG TAB PO SCH (09:19)
[2017-07-20] MEDS: LORATADINE 10 MG TAB PO SCH (09:20)
[2017-07-20] MEDS: MULTIVITAMINS/MINERALS THERAPEUTIC TAB PO SCH (09:20)
[2017-07-20] MEDS: amLODIPine BESYLATE 5 MG TAB PO SCH (09:20)
[2017-07-20] MEDS ORDERED: AMLO5 PO (11:25)
[2017-07-20] MEDS ORDERED: CARD2TAB PO (11:25)
--- NOTE | 2017-07-20 11:26 | HHI.DCPOC ---
Discharge Care Plan Diagnosis: (1) SBO (small bowel obstruction) (2) Depression (3) Hyperlipidemia (4) Hypertension Goals to Promote Your Health * To prevent worsening of your condition and complications * To maintain your health at the optimal level Directions to Meet Your Goals Take your medications as prescribed Follow your dietary instruction Follow activity as directed Keep your appointments as scheduled Take your immunizations and boosters as scheduled If your symptoms worsen call your PCP, if no PCP go to Urgent Care Center or Emergency Room Smoking is Dangerous to Your Health. Avoid second hand smoke Call the 24-hour hour crisis hotline for domestic abuse at Bari Schroeder MD Jul 20, 2017 11:26
[2017-07-20] MEDS ORDERED: OXYC1TAB63 PO (11:27)
--- NOTE | 2017-07-20 11:36 | HHI.DS ---
Discharge Summary Admission Date Jul 14, 2017 at 02:20 Discharge Date: Jul 20, 2017 Admitting Diagnosis SBO (1) SBO (small bowel obstruction) ICD Code: K56.609 - Unspecified intestinal obstruction, unspecified as to partial versus complete obstruction Diagnosis: Principal Status: Resolved (2) Hyperlipidemia ICD Code: E78.5 - Hyperlipidemia, unspecified Diagnosis: Secondary Status: Chronic (3) Abdominal pain ICD Code: R10.9 - Unspecified abdominal pain Diagnosis: Principal Status: Resolved (4) Depression ICD Code: F32.9 - Major depressive disorder, single episode, unspecified Diagnosis: Principal Status: Chronic (5) Hypophosphatemia ICD Code: E83.39 - Other disorders of phosphorus metabolism Diagnosis: Principal Status: Chronic (6) Hypocalcemia ICD Code: E83.51 - Hypocalcemia Status: Chronic (7) Low grade fever ICD Code: R50.9 - Fever, unspecified Diagnosis: Principal Status: Resolved (8) Left upper extremity swelling ICD Code: M79.89 - Other specified soft tissue disorders (9) Uncontrolled hypertension ICD Code: I10 - Essential (primary) hypertension Diagnosis: Principal Procedures DATE OF SURGERY: 07/14/2017 PREOPERATIVE DIAGNOSIS: 1. Small bowel obstruction secondary to calcified mass, right lower quadrant. 2. 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 POSTOPERATIVE DIAGNOSIS: 1. Small bowel obstruction secondary to calcified mass, right lower quadrant. 2. 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 PROCEDURE PERFORMED: Diagnostic laparoscopy. Exploratory laparotomy. Resection of small bowel diverticulum and calcified mass. SURGEON Carlos Eduardo Laura MD. Brief History - From Admission Patient is a 62-year-old male. He was having abdominal pain since Wednesday. The pain has been intermittent abdominal pain on the lower abdomen as 8 out of 10 that is been nonradiating. Patient denies any nausea vomiting or diarrhea or fevers or chest pain. States his pain improved with vomiting His primary care physician is in [place] is visiting Has been seen by surgery and is scheduled to go for a laparoscopic procedure today of his abdomen CBC/BMP: 07/20/17 0607 07/20/17 0657 Significant Findings Laboratory Tests Test 07/18/17 00:50 07/18/17 03:50 07/19/17 05:41 07/20/17 06:07 Red Blood Count 3.64 MIL/MM3 (4.50-5.90) 3.58 MIL/MM3 (4.50-5.90) 3.43 MIL/MM3 (4.50-5.90) 3.37 MIL/MM3 (4.50-5.90) Hemoglobin 11.5 GM/DL (13.0-17.0) 11.3 GM/DL (13.0-17.0) 11.2 GM/DL (13.0-17.0) 11.0 GM/DL (13.0-17.0) Hematocrit 34.6 % (39.0-51.0) 34.1 % (39.0-51.0) 32.3 % (39.0-51.0) 31.5 % (39.0-51.0) Neutrophils (%) (Auto) 83.3 % (16.0-70.0) 81.0 % (16.0-70.0) 86.2 % (16.0-70.0) 81.2 % (16.0-70.0) Lymphocytes (%) (Auto) 8.0 % (9.0-44.0) 7.2 % (9.0-44.0) Neutrophils # (Auto) 9.2 TH/MM3 (1.8-7.7) 9.0 TH/MM3 (1.8-7.7) 8.6 TH/MM3 (1.8-7.7) Lymphocytes # (Auto) 0.9 TH/MM3 (1.0-4.8) 0.7 TH/MM3 (1.0-4.8) 0.9 TH/MM3 (1.0-4.8) Prothrombin Time 11.8 SEC (9.8-11.6) Activated Partial Thromboplast Time 32.6 SEC (24.3-30.1) White Blood Count 11.1 TH/MM3 (4.0-11.0) Total Protein 5.8 GM/DL (6.4-8.2) Albumin 2.3 GM/DL (3.4-5.0) Calcium Level 8.2 MG/DL (8.5-10.1) 7.8 MG/DL (8.5-10.1) Chloride Level 110 MEQ/L (98-107) 109 MEQ/L (98-107) Estimat Glomerular Filtration Rate 86 ML/MIN (>89) 86 ML/MIN (>89) Random Glucose 113 MG/DL (74-106) Test 07/20/17 06:57 Total Protein 5.6 GM/DL (6.4-8.2) Albumin 2.2 GM/DL (3.4-5.0) Calcium Level 7.7 MG/DL (8.5-10.1) Chloride Level 108 MEQ/L (98-107) Estimat Glomerular Filtration Rate 83 ML/MIN (>89) Imaging Last Impressions Upper Extremity Ultrasound 07/18/17 0000 Signed Impressions: Service Date/Time: Tuesday, July 18, 2017 18:28 - CONCLUSION: Negative exam. No sonographic or Doppler findings of DVT. Candelario Lozano MD Chest X-Ray 07/18/17 0000 Signed Impressions: Service Date/Time: Tuesday, July 18, 2017 18:12 - CONCLUSION: Hypoinflation. No acute cardiopulmonary process Candelario Lozano MD Abdomen X-Ray 07/14/17 0000 Signed Impressions: Service Date/Time: Friday, July 14, 2017 08:16 - CONCLUSION: 1. Abnormally dilated small bowel with air-fluid levels characteristic of a small bowel obstruction. 2. The level of obstruction is in the right lower quadrant where there is a 3 cm calcified lesion within the small bowel based on earlier CT. No pneumobilia is visualized to definitively diagnose gallstone ileus but that is a top consideration. Less likely a calcified small bowel mass or ingested foreign body could be the cause for the calcified lesion in the distal ileum. Zachary Villalpando MD Abdomen/Pelvis CT 07/13/17 [id number] Signed Impressions: Service Date/Time: Friday, July 14, 2017 00:30 - CONCLUSION: 2 cm ossific density involving the terminal ileum with proximal dilatation characteristic of mechanical obstruction. Titi Blunt MD PE at Discharge AAOx3, nad NG tube in place with brownish fluid material Lungs clear BL S1S2 RRR, no MRG Very distended abdomen with sluggish bowel sounds improved from yesterday. No edema in lower extremities Left upper extremity edematous, no tenderness or erythema observed. Pt update on day of discharge Denies cp/sob/ Bp controlled. tolerating diet. Blood cultures negative to date. No further fevers. Hospital Course (1) SBO (small bowel obstruction) Surgery consulted. The patient is status post: Diagnostic laparoscopy. Exploratory laparotomy. Resection of small bowel diverticulum and calcified mass. Patient did not tolerate liquid diet. Back on NG suction and nothing by mouth on 07/17. Pain controlled. Continue pain medications as per general surgery recommendations. The patient currently on morphine sulfate. 07/18 NG tube clamped today by Dr Barnett. 07/19 NG tube removed, patient tolerating diet. Continue Management as per General surgery. (2) Hyperlipidemia Statin continued. Follow-up fasting lipid profile as an outpatient. (3) Abdominal pain Pain controlled. Continue management with Percocet and IV morphine sulfate. 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 07/18 BP this am still very elevated this am. Ordered doxazosin 2 mg po daily. 07/19 BP much improved after Cardura. Continue amlodipine and Cardura. (5) Depression Seems stable. Continue Lexapro. (6) Hypophosphatemia Likely due to poor oral intake. SP IV Sodium Phosphate. Monitor Phosphorus levels. 07/18 hypophosphatemia resolved with phosphorus level of 3.1. Continue to monitor levels. (7) Hypocalcemia Likely due to poor oral intake. Sp replacement with IV Calcium Chloride. Continue to monitor levels. (8) Low grade fever Plan: UA negative for infection. Blood cultures obtained and pending. Will follow up. Due to recent complaints of cough I will order a chest x-ray. WBC count increased to 11.1 from 10k - will continue to monitor CBC with differential. 07/19 CXR did not show any acute disease or infiltrates. (9) Left upper extremity swelling Plan: Venous Doppler of the upper extremities ordered and negative for DVT. DVT prophylaxis: SCDs. Pt Condition on Discharge: Stable Discharge Disposition: Discharge Home Discharge Time: <= 30 minutes Discharge Instructions DIET: Follow Instructions for: Heart Healthy Diet Activities you can perform: Regular-No Restrictions Activities to Avoid: Lifting/Bending, Strenuous Activity Follow up Referrals: Surgical - 07/22/17 with Carlos Eduardo Laura MD New Medications: Amlodipine (Norvasc) 5 Mg Tab 10 MG PO DAILY for Blood Pressure Management, #30 TAB Doxazosin (Cardura) 2 Mg Tab 2 MG PO DAILY for Blood Pressure Management, #31 TAB Oxycodone HCl/Acetaminophen (Oxycodone-Acetaminophen 5-325) 5 Mg-325 Mg Tablet 1 TAB PO Q6H PRN for PAIN SCALE 1 TO 10, #20 TAB Continued Medications: Aspirin (Aspirin) 81 Mg Chew 81 MG CHEW HS, TAB 0 Refills Escitalopram (Escitalopram) 10 Mg Tab 20 MG PO DAILY, #30 TAB 0 Refills Fexofenadine (Fexofenadine) 180 Mg Tab 180 MG PO BID for Allergy Management, #30 TAB 0 Refills Fish Oil-Cholecalciferol (Fish Oil + D3) 1,200-1,000 Mg-Unit Cap 1 CAP PO BID for Nutritional Supplement, #30 CAP 0 Refills Lisinopril (Lisinopril) 20 Mg Tab 20 MG PO HS, #30 TAB 0 Refills Multivit-Min/FA/Lycopen/Lutein (Complete Multi 50+ Tablet) 500 Mcg-300 Mcg-250 Mcg Tablet 1 TAB PO DAILY Simvastatin (Simvastatin) 20 Mg Tab 20 MG PO HS for Cholesterol Management, #30 TAB 0 Refills Discontinued Medications: Amlodipine (Amlodipine) 5 Mg Tab 5 MG PO DAILY for Blood Pressure Management, #30 TAB 0 Refills Bari Schroeder MD Jul 20, 2017 11:36
[2017-07-20] MEDS ORDERED: PANTOPRAZOLE SOD 40 MG DELAYED RELEASE TAB PO SCH (21:00)
== END 2017-07-20 13:10 | disposition home or self-care (01) | DRG 330 ==
LOC: NEPC 22:45 → OBSVTOIN 07-14 02:20 → NEDA 07-14 02:20 → N07A 07-14 03:39
PROVIDERS: ADMIT Hospitalist; ATTEND Hospitalist
PROC: 0DB80ZZ Excision of Small Intestine, Open Approach (ICD-10-PCS; principal; 2017-07-14 17:09)
PROC: 0WJG4ZZ Inspection of Peritoneal Cavity, Percutaneous Endoscopic Approach (ICD-10-PCS; 2017-07-14 17:09)
DX: K57.10 Diverticulosis of small intestine without perforation or abscess without bleeding (principal); K56.50 Intestinal adhesions [bands], unspecified as to partial versus complete obstruction; R19.03 Right lower quadrant abdominal swelling, mass and lump; E83.39 Other disorders of phosphorus metabolism; I10 Essential (primary) hypertension; F32.9 Major depressive disorder, single episode, unspecified; E78.5 Hyperlipidemia, unspecified; E83.51 Hypocalcemia; M79.89 Other specified soft tissue disorders; F41.9 Anxiety disorder, unspecified; N28.9 Disorder of kidney and ureter, unspecified; E86.0 Dehydration
CPT/HCPCS: 71020; 74020; 74176; 80048; 80053; 81001; 82247; 82565; 83036; 83690; 83735; 84100; 84439; 84443; 85007; 85025; 85027; 85610; 85730; 87040; 88307; 93005; 93971; 94150; 96374; 96375; C9113; J0131; J0330; J0690; J1650; J2250; J2270; J2405; J3010; J3480; J7030; J7120